=== PATIENT | male | born 1975 | race Caucasian/White ===

== ENCOUNTER 2020-07-15 14:43 | Emergency (ER) | payer SELFPAY ==
[2020-07-15 14:50] VITALS: BP 123/85; PULSE 96; RESP 16; TEMP 36.8; O2SAT 100
--- NOTE | 2020-07-15 14:57 | ED.EYEPROB ---
HPI - Eye Problem General Chief complaint: Eye Problems Stated complaint: left eye redness Time Seen by Provider: 07/15/20 14:57 History of Present Illness HPI Narrative: 45 yo male presents from home for eye pain. He has had pain in the left eye since yesterday. Started after a alfredo of wind blew up some concretes dust. Initially it was mild. When he awoke this morning his eye was more painful, red, and puffy. He does have mildly blurry vision. Related Data Allergies Allergy/AdvReac Type Severity Reaction Status Date / Time No Known Allergies Allergy Verified 07/15/20 14:59 Review of Systems Review of Systems: All systems reviewed & are unremarkable except as noted in HPI and below Eyes: Eyes: Reports change in vision and Reports photophobia ENT: Denies dizziness Cardiovascular: Cardiovascular: Denies chest pain Respiratory: Respiratory: Denies dyspnea Gastrointestinal: Gastrointestinal: Denies nausea and Denies vomiting Neurologic: Denies confusion, Denies headache(s), Denies numbness and Denies weakness [facility] Past Medical History Medical History (Updated 07/16/20 @ 00:01 by Hussain Little) Healthy adult male Social History Social History (Updated 07/15/20 @ 15:12 by Chago Davidson MD) Living arrangements: with family Gender identity (if verbalized by the patient): Male Sexual Orientation (if Verbalized by the Patient): Straight or Heterosexual Exam Const: General: healthy appearing, no acute distress and alert HENMT: Head: normal to inspection Eyes: Alignment and Position: alignment normal Periorbital: periorbital findings normal Eyelids: eyelids normal Conjunctivae: conjunctival abnormality left conjunctival injection diffuse Cornea: fluorescein used (Small area of uptake over the left cornea) Pupils: Equal, round and reactive pupils present EOM: EOMs intact bilaterally Resp: Effort & Inspection: normal respiratory effort Skin: General skin exam: normal color Neuro: General: patient oriented x3, moves all extremities, no focal motor deficits and CN's II-XI intact bilaterally Speech: normal speech Gait exam (Neuro): Normal gait present Extrem: General: normal to inspection Course Vital Signs Vital signs: Vital Signs Temperature 36.8 C 07/15/20 14:50 Pulse Rate 96 07/15/20 14:50 Respiratory Rate 16 07/15/20 14:50 Blood Pressure 123/85 01/07/21 14:50 Pulse Oximetry 100 07/15/20 14:50 Temperature 36.8 C 07/15/20 14:50 Pulse Rate 96 07/15/20 14:50 Respiratory Rate 16 07/15/20 14:50 Blood Pressure 123/85 07/15/20 14:50 Pulse Oximetry 100 07/15/20 14:50 MDM - Eye Problem MDM Narrative Medical decision making narrative: corneal abrasion on exam. No contact use. I will start him on erythromycin ointment. Medical Records Attestation: I reviewed the patient's medical records. Lab Data Attestation: I reviewed the patient's lab results. Discharge Plan Discharge Clinical Impression: Corneal abrasion Patient Disposition: Home, Self-Care Condition: Stable Instructions: Antibiotic Form, Corneal Abrasion (ED) Prescriptions: New erythromycin 5 mg/gram (0.5 %) ointment 0.5 inch LEFTEYE QID 5 Days Qty: 3.5 RF: 0 Follow-up/Referrals: Rod Blair Jr., MD [Physician] - PHYSICIAN NOT ON STAFF,NONSTAFF [Non-Staff] -
== END 2020-07-15 15:40 | disposition home or self-care (01) ==
LOC: ANHED 15:25
PROVIDERS: Emergency Provider Emergency Medicine
DX: S05.02XA Injury of conjunctiva and corneal abrasion without foreign body, left eye, initial encounter (principal); X58.XXXA Exposure to other specified factors, initial encounter
CPT/HCPCS: 99283; A9270

== ENCOUNTER 2021-08-07 22:08 | Emergency (ER) | payer SELFPAY ==
--- NOTE | ~2021-08-07 | XR_ITS ---
EXAMINATION: XR knee LT 3V DATE: 08/07/2021 23:01 INDICATION: Fall. TECHNIQUE: 3 views of left knee were obtained. COMPARISON: None. FINDINGS: Bone alignment is normal. No fracture. Joint spaces are well maintained. There is no knee j oint effusion. IMPRESSION: 1. Normal left knee. Reviewed, dictated and finalized at location A. FORMER MACHINE OPERATOR IMPRESSION: 1. Normal left knee.
[2021-08-07 22:14] VITALS: BP 105/61; PULSE 65; RESP 20; TEMP 36.5; O2SAT 100
--- NOTE | 2021-08-07 22:46 | ED.LOWEXIN ---
HPI - Extremity Injury (Lower) General Chief Complaint: Extremity Injury, Lower Stated Complaint: left knee injury Time Seen by Provider: 08/07/21 22:39 Source: patient and family Mode of arrival: ambulatory Limitations: no limitations History of Present Illness HPI Narrative: Patient was bending over, lost his balance and needed landed on the left knee. No other injuries. 2 hours prior to arrival to the emergency room. Patient received naproxen prior to arrival. Related Data Home Medications Medication Instructions Recorded Confirmed No Home Medications 08/07/21 08/07/21 Allergies Allergy/AdvReac Type Severity Reaction Status Date / Time No Known Allergies Allergy Verified 08/07/21 22:17 Review of Systems Review of Systems: CONSTITUTIONAL: Denies fever, chills, or sweats. EYES: Denies visual changes, redness, or discharge. ENT: Denies rhinorrhea, congestion, sore throat, or otalgia. CARDIOVASCULAR: Denies chest pain, palpitations, or edema. RESPIRATORY: Denies cough or dyspnea. GASTROINTESTINAL: Denies abdominal pain, nausea, vomiting, or diarrhea. GENITOURINARY: Denies dysuria or hematuria. SKIN: Denies rash or itching. MUSCULOSKELETAL: Diffuse pain and limited range of motion of left knee NEUROLOGIC: Denies headache, numbness, or weakness. PSYCHIATRIC: Denies anxiety or depression. PMFSH Past Medical History Medical History Healthy adult male Social History Social History Gender identity (if verbalized by the patient): Male Sexual Orientation (if Verbalized by the Patient): Straight or Heterosexual Exam Narrative: General appearance: Well-developed, well-nourished Skin: Normal color Head: Normocephalic, nontraumatic Neck: Supple, nontender Chest and respiratory: Airway patent, no respiratory distress, no accessory muscle use Vascular: Normal peripheral pulses, normal capillary refill. Musculoskeletal: Left knee exam showed diffuse swelling anteriorly, diffuse tenderness, limited range of motion. No deformity Neurologic: Alert and oriented ?3, [employer] is normal as tested, no gross motor deficit Course Course Emergency Course: Stable Vital Signs Vital signs: Vital Signs Temperature 36.5 C 08/07/21 22:14 Pulse Rate 65 08/07/21 22:14 Respiratory Rate 20 08/07/21 22:14 Blood Pressure 105/61 08/07/21 22:14 Pulse Oximetry 100 08/07/21 22:14 Temperature 36.5 C 08/07/21 22:14 Pulse Rate 65 08/07/21 22:14 Respiratory Rate 08/07/21 22:14 Blood Pressure 105/61 08/07/21 22:14 Pulse Oximetry 100 08/07/21 22:14 MDM - Extremity Injury (Lower) MDM Narrative Medical decision making narrative: Left knee injury Differential Diagnosis Differential diagnosis: Likely acute internal derangement of knee, fracture of femur and other (Patella fracture) Critical Care Time Critical Care Time Critical Care Time: No Discharge Plan Discharge Prescriptions: No Action No Home Medications RF: 0 Follow-up/Referrals: PHYSICIAN,AD COPY WRITER [Primary Care Provider] -
[2021-08-07 22:52] VITALS: BP 123/74; PULSE 65; RESP 18; O2SAT 99
[2021-08-07] MEDS: HYDROcodone/acetaminophen (*CRX) 7.5-325 MG TABLET 1 TAB PO (23:00)
[2021-08-08 01:08] VITALS: BP 144/83; PULSE 86; RESP 14; O2SAT 98
== END 2021-08-08 01:34 | disposition home or self-care (01) ==
PROVIDERS: Emergency Provider Emergency Medicine
DX: S80.02XA Contusion of left knee, initial encounter (principal); W18.39XA Other fall on same level, initial encounter
CPT/HCPCS: 73562; 99283; A9270

== ENCOUNTER 2023-06-27 08:13 | Emergency (ER) | payer SELFPAY ==
[2023-06-27 08:16] VITALS: BP 131/85; PULSE 92; RESP 16; TEMP 36.8; O2SAT 100
--- NOTE | 2023-06-27 08:19 | ED.SKABFB ---
HPI - Skin/Abscess/Foreign Bdy General Chief complaint: Skin/Abscess/Foreign Body Stated complaint: rash Time Seen by Provider: 06/27/23 08:18 Source: patient and family Mode of arrival: ambulatory Limitations: no limitations History of Present Illness HPI narrative: 48 yo with no known medical issues (though does not see physicians/have regular care) presents with a rash. He started haing pain a few days ago. He then developed the rash which did have a few blisters that drained. Rash is on his neck and back and is described as painful, burning. Related Data Allergies Allergy/AdvReac Type Severity Reaction Status Date / Time No Known Allergies Allergy Verified 06/27/23 08:18 [facility] Past Medical History Medical History Healthy adult male Social History Social History Living arrangements: with family Gender identity (if verbalized by the patient): Male Sexual Orientation (if Verbalized by the Patient): Straight or Heterosexual Exam Narrative: GENERAL: thin/gaunt, and in no acute distress. HEAD: Normocephalic, atraumatic. EYES: Non injected, non icteric ENT: Nares clear, no rhinorrhea or epistaxis. Bear NECK: Supple. Rash along R neck. CHEST: Speaksi in full sentences. No respiratory distress. HEART: Regular rate and rhythm. . ABDOMEN: Soft, nondistended. EXTREMITIES: Normal range of motion. No edema. SKIN: Warm, dry. Rash along R neck/superior chest/back. NEURO: No focal deficits. Alert and oriented x3. PSYCH: Normal mood and affect. Course Vital Signs Vital signs: Vital Signs Temperature 98.2 F 06/27/23 08:16 Pulse Rate 92 06/27/23 08:16 Respiratory Rate 16 06/27/23 08:16 Blood Pressure 131/85 06/27/23 08:16 Pulse Oximetry 100 06/27/23 08:16 Temperature 98.2 F 06/27/23 08:16 Pulse Rate 92 06/27/23 08:16 Respiratory Rate 16 06/27/23 08:16 Blood Pressure 131/85 06/27/23 08:16 Pulse Oximetry 100 06/27/23 08:16 MDM - Skin/Abscess/Foreign Bdy MDM Narrative Medical decision making narrative: Patient presents with a burning, painful rash. Lesions are on the right particularly dermatomal distributions C4, C5, and T1. This is classic herpes zoster/shingles based on unilateral nature that follows dermatomal distribution. Patient has unclear underlying history; no known medical conditions but does not regularly get care. For this reason, and because 3 dermatomes involved which would put him at greater risk if immunocompromised or other risk factors, will obtain labs. Patient does verbally consent to HIV testing. Patient does appear to have hyponatremia however this is partial pseudo hyponatremia given that the sodium of 132 corrects to either 136 or 137 by Lizzy Rubalcava in the setting of glucose 325 mg/dL. Discharged in stable condition but with strict ED return precautions. Verifies understanding. Lab Data Attestation: I reviewed the patient's lab results. Lab results narrative: CBC unremarkable. Normal renal function. Hepatitis and HIV testing negative. 06/27/23 08:55 06/27/23 08:55 Labs: Lab Results 06/27/23 Range/Units 08:55 WBC 5.5 (4.5-10.0) K/mm3 RBC 5.04 (4.6-6.20) M/mm3 Hgb 14.7 (14.0-18.0) g/dL Hct 44.1 (42.0-52.0) % MCV 87.5 (80-100) fl MCH 29.2 (26-34) pg MCHC 33.3 (32-36) g/dl RDW 12.2 (11.5-14.5) % Plt Count 244 (150-375) k/mm3 MPV 9.5 (7.4-10.4) fl Immature Gran % (Auto) 0.5 (0-0.5) % Neut % (Auto) 69.4 (45.5-73.1) % Lymph % (Auto) 13.9 L (18.3-44.2) % [place] % (Auto) 12.6 H (2.6-8.5) % Eos % (Auto) 2.9 (0-4.4) % Baso % (Auto) 0.7 (0.2-1.2) % Lymph # (Auto) 0.77 L (0.9-3.2) K/mm3 [place] # (Auto) 0.7 H (0.1-0.6) K/mm3 Eos # (Auto) 0.2 (0-0.3) K/mm3 Baso # (Auto) 0.0 (0.0-0.1) K/mm3 Abs Immat Gran (auto) 0.03 (0.00-0.031) K/mm3 Abso
[2023-06-27 09:04] LABS: Basophils Percent Auto 0.7 % (0.2-1.2); Eosinophils Absolute Auto 0.2 K/mm3 (0-0.3); Eosinophils Percent Auto 2.9 % (0-4.4); Hematocrit 44.1 % (42.0-52.0); Hemoglobin 14.7 g/dL (14.0-18.0); Immature Granulocyte Absolute 0.03 K/mm3 (0.00-0.031); Immature Granulocyte Percent A 0.5 % (0-0.5); Lymphocytes Absolute Auto 0.77 K/mm3 (0.9-3.2); Lymphocytes Percent Auto 13.9 % (18.3-44.2); Mean Corpuscular HGB Conc 33.3 g/dl (32-36); Mean Corpuscular Hemoglobin 29.2 pg (26-34); Mean Corpuscular Volume 87.5 fl (80-100); Mean Platelet Volume 9.5 fl (7.4-10.4); Monocytes Absolute Auto 0.7 K/mm3 (0.1-0.6); Monocytes Percent Auto 12.6 % (2.6-8.5); Neutrophils Absolute Auto 3.8 K/mm3 (1.3-6.7); Neutrophils Percent Auto 69.4 % (45.5-73.1); Platelet Count Result 244 k/mm3 (150-375); Red Blood Count 5.04 M/mm3 (4.6-6.20); Red Cell Distribution Width 12.2 % (11.5-14.5); White Blood Count 5.5 K/mm3 (4.5-10.0)
[2023-06-27] MEDS: HYDROcodone/acetaminophen (*CRX) 5-325 MG TABLET 1 TAB PO (09:04)
[2023-06-27 09:14] LABS: Alanine Aminotransferase 26 U/L (6-50); Alkaline Phosphatase 126 U/L (38-126); Anion Gap 7 mmol/L (8-16); Aspartate Amino Transferase 25 U/L (17-59); Bilirubin,Total 0.5 mg/dL (0.2-1.3); Blood Urea Nitrogen 15 mg/dL (9-20); Calcium 8.9 mg/dL (8.4-10.2); Carbon Dioxide 25 mmol/L (22-30); Chloride 100 mmol/L (98-107); Estimated CRCL calculation 153 ml/min; Estimated Glomerular Filt Rate > 60; Glucose 325 mg/dL (65-110); Potassium 4.4 mmol/L (3.4-5.0); Sodium 132 mmol/L (137-145)
[2023-06-27 09:55] LABS: HIV 1/2 Ab P24 Ag Result Negative (Negative)
[2023-06-27 10:26] LABS: Hepatitis B Surface Antigen Negative (Negative)
[2023-06-27 10:31] LABS: HAV RESULT Negative (Negative); Hepatitis B Core IgM Result Negative (Negative)
[2023-06-27 10:43] LABS: Hepatitis C Virus Antibody Negative (Negative)
[2023-06-27] MEDS: ACYCLOVIR 400 MG TABLET 800 MG PO (11:20)
[2023-06-27] MEDS: diphenhydrAMINE HCl CAP 25 MG CAPSULE PO (11:21)
== END 2023-06-27 11:23 | disposition home or self-care (01) ==
PROVIDERS: Emergency Provider Student in an Organized Health Care Education/Training Program
DX: B02.9 Zoster without complications (principal); R73.9 Hyperglycemia, unspecified
CPT/HCPCS: 36415; 80053; 80074; 85025; 86703; 99283; A9270; G0432

== ENCOUNTER 2024-02-25 21:14 | Emergency (ER) | payer MEDICAID, SELFPAY ==
[2024-02-25 21:24] VITALS: BP 152/84; PULSE 83; RESP 15; TEMP 36.6; O2SAT 98
[2024-02-25 21:27] LABS: Glucose Point of Care 277 mg/dl (65-105)
== END 2024-02-25 23:04 | disposition left against medical advice (07) ==
LOC: ANHED 23:02
PROVIDERS: Emergency Provider Emergency Medicine
DX: E11.9 Type 2 diabetes mellitus without complications (principal)
CPT/HCPCS: 82948; 99199

== ENCOUNTER 2025-02-10 19:44 | Emergency (ER) | payer OTHER, SELFPAY ==
--- OUTSIDE RECORDS SUMMARY | 2025-02-10 19:46 | XMS_ITS | Encounter Summary ---
Author Organization [employer] Address [address] [place] [address] Care Team Providers Care Anesthesiologist And Critical Care Name Role Phone Jolie Phelan MD Primary Care Provider [phone] Encounter Details Date Type Department Care Team (Late st Contact Info) Description 03/21/1999 Emergency [facility] [place] Open wound of hand except finger(s) alone, without mention of complication (Primary Dx) Social History Tobacco Use Types Packs/Day Years Used Date Smoking Tobacco: Never Assessed Sex and Gender Information Value Date Recorded Sex Assigned at Not on file Legal Sex Male 2:41 AM [employer] Gender Identity Not on file Sexual Orientation Not on file documented as of this encounter Plan of Treatment Not on file documented as of this encounter Visit Diagnoses Diagnosis Open wound of hand except finger(s) alone, without mention of complication- Primary documented in this encounter Care Teams Anesthesiologist And Critical Care Relationship Specialty Start Date End Date Jolie Phelan MD PCP - General Family Practice 12/05/11 09/27/12 documented as of this encounter
--- OUTSIDE RECORDS SUMMARY | 2025-02-10 19:46 | XMS_ITS | Referral Summary ---
Author Organization [facility] Address [address] [place] [phone] Care Team Providers Care Water Treatment Technician Name Role Phone Jai Medina NP Primary Care Provider [phone] Encounters Date Type Department Care Team Description 01/26/2025 3:02 PM CDT - 01/26/2025 11:59 PM CDT Hospital Encounter [address] [phone] Ulcer of left foot, with fat layer exposed (HCC) Discharge Disposition: Discharge to home or self care 01/26/2025 Results Follow-Up [facility] Podiatry at [address] [phone] Leighann Charles MD XR Foot Left Weight-Bearing 3 or More Views, Aerobic and anaerobic culture and gram stain Wound Foot, left 01/26/2025 3:19 PM CDT - 01/26/2025 11:59 PM CDT Hospital Encounter [facility] Diagnostic Imaging [address] [place] [phone] Ulcer of left foot, with fat layer exposed (HCC) Discharge Disposition: Discharge to home or self care 01/26/2025 2:30 PM CDT Office Visit [facility] Pod[facility]ry at [address] [phone] Leighann Charles MD Type 1 diabetes, controlled, with neuropathy (HCC) (Primary Dx); Corns and callosities; Blister of left foot, initial encounter; Ulcer of left foot, with fat layer exposed (HCC); Type 1 diabetes mellitus with hyperglycemia (HCC) 01/26/2025 1:00 PM CDT Office Visit [facility] [address], [place] [address] Ramona Romero MD Type 1 diabetes mellitus with hyperglycemia (HCC) (Primary Dx) 01/23/2025 Results Follow-Up [facility] [address] [phone] Flora Roland PA TSH, T4, free, T3, free, Additional followed-up results: 4 01/23/2025 9:35 AM CDT Lab [address] [address] Toxic thyroid nodule; Type 1 diabetes mellitus with hyperglycemia (HCC) 01/19/2025 Telephone [facility] Gastroenterology at [address] [phone] Huy Valiente MD 12/29/2024 Telephone [facility] at [address] [phone] Jai Medina NP Medication Problem 12/29/2024 7:30 AM CDT Office Visit [facility] at [address] [phone] Jai Medina NP Type 1 diabetes mellitus with hyperglycemia (HCC) (Primary Dx); Hyperlipidemia due to type 1 diabetes mellitus (HCC); Abnormal thyroid blood test; Need for vaccination; Need for pneumococcal 20-valent conjugate vaccination 12/10/2024 Orders Only [facility] Diabetes and Endocrinology [address] [place] [phone] Jack Serrano MD 12/02/2024 9:15 AM CDT Office Visit [facility] [address] [phone] Flora Roland PA Type 1 diabetes mellitus with hyperglycemia (HCC) (Primary Dx); Toxic thyroid nodule; Hyperlipidemia due to type 1 diabetes mellitus (HCC) from Last 3 Months Allergies No known active allergies Medications glucagon (Gvoke HypoPen 1-Pack) 1 mg/0.2 mL auto-injector Inject 1 mg under the skin as needed (Hypoglycemia ) 0.2 mL 3 4 Active insulin lispro (HumaLOG, ADMELOG) 100 unit/mL pen for injectionIndica tions:type 2 diabetes mellitus Take 1 unit per 20 grams of carbs and add 1 unit per every 50 points over 150, up to 10 units daily 15 mL 6 4 Active blood-glucose sensor device Change q 10 days (dexcom G7) 9 each 3 4 Active blood-glucose meter,continuou s misc Use to monitor CBGs 1 each 4 Active atorvastatin (LIPITOR) 10 mg tabletIndicatio ns:Screening for prostate cancer,Prostate cancer screening,Encou nter for hepatitis C screening test for low risk patient,Need for hepatitis B screening test Take 1 tablet (10 mg total) by mouth daily 90 tablet 4 4 06/27/20 25 Active insulin glargine (LANTUS) 100 unit/mL (3 mL) pen for injection Inject 15 Units under the skin nightly 15 mL 2 4 Active pen needle, diabetic (BD Ultra-Fine Shirley Pen Needle) 32 gauge x 5/32 needle Use to inject insulin 4x/day 360 each 3 5 Active methIMAzole (TAPAZOLE) 5 mg tablet TAKE 1/2 TABLET BY MOUTH DAILY 15 tablet 3 5 Active varenicline tartrate (CHANTIX TALIB) 0.5 mg (11)- 1 mg (42) tablet Use as directed on package instructions, try to quit smoking after 1 week. 53 tablet 5 03/29/20 25 Active lansoprazole (PREVACID) 30 mg capsule Take 1 capsule (30 mg total) by mouth daily 90 capsule 4 5 12/30/19 26 Active bisacodyl EC (DULCOLAX EC) 5 mg EC tabletIndicatio ns:constipation At 7 pm, take all four tablets at once with a glass of water. 4 tablet 5 Active polyethylene glycol (GoLYTELY) 236-22.74-6.74 -5.86 gram solution Take As Directed 8000 mL 5 Active losartan (COZAAR) 25 mg tablet Take 1 tablet (25 mg total) by mouth daily 90 tablet 3 5 01/27/20 26 Active ciprofloxacin (CIPRO) 500 mg tablet Take 1 tablet (500 mg total) by mouth 2 (two) times a day for 14 days 28 tablet 5 02/11/20 25 Active polyethylene glycol (GoLYTELY) 236-22.74-6.74 -5.86 gram solution Mix as directed. At 4:00 pm, begin drinking one half of the mixed solution; you will have until 7:00 pm to finish. At 10 pm drink the second half of the mixed solution, you have till midnight to finish. 4000 mL 5 01/23/20 25 Discontinu ed(Alterna te therapy) Active Problems Problem Noted Date Diagnosed Date Type 1 diabetes, controlled, with neuropathy Assessment & Plan (01/26/2025 4:44 PM CDT): Patient should continue to follow-up with their primary care doctor for treatment of diabetes. They should continue at risk foot care to prevent diabetic complications that could lead to toe or foot amputations. Ulcer of left foot, with fat layer exposed 01/26 Assessment & Plan (01/26/2025 4:45 PM CDT): Ulcer debrided. Patient to continue home treatment with Bactroban and dry sterile dressing. Patient advised to get orthotics and start wearing them to decrease callus buildup which could lead to additional ulcerations. Corns and callosities 01/26/2025 Assessment & Plan (01/26/2025 4:45 PM CDT): Calluses debrided Blister of left foot 01/26/2025 Assessment & Plan (01/26/2025 4:46 PM CDT): Patient advised to apply Neosporin on the blister and monitor for signs of infection. Since patient not in pain the blister will not need to be drained. Patient also advised to use Vaseline or other emollient cream on the calluses to decrease friction so that they will not build up as fast and make him at risk for additional diabetic ulcers. Screening for colon cancer 01/21/2025 Toxic thyroid nodule 11/06/2024 Assessment & Plan (12/02/2024 10:00 AM CDT): Chronic problem, on MMI 2.5 mg daily since 08/02, tolerating well. Feels his heart racing has resolved, fatigue has also improved. Update labs. Abnormal thyroid blood test 07/11/2024 Assessment & Plan (12/29/2024 9:59 AM CDT): Discussed need for re-evaluation of thyroid levels. Thyroid labs ordered by endocrinology pending. Patient stated he would get labs drawn today. Assessment & Plan (07/17/2024 12:38 PM SHOW HOST OR HOSTESS): New problem, on screening labs in 07/01. Repeat TFTs today as well as thyroid antibodies. Next step determined based on lab results, if persistently suppressed TSH will do I-123 scan. Hyperlipidemia due to type 1 diabetes mellitus 0 07/11/2024 Assessment & Plan (12/29/2024 9:54 AM CDT): Patient compliant with cholesterol medications. Lipids to be evaluated in June. Assessment & Plan (12/02/2024 9:57 AM CDT): Chronic problem. On statin therapy, no changes. Assessment & Plan (07/17/2024 12:38 PM SHOW HOST OR HOSTESS): Chronic problem. On statin therapy, no changes. Encounter for screening for malignant neoplasm o f colon 07/07/2024 Type 1 diabetes mellitus with hyperglycemia 12/2023 Assessment & Plan (12/29/2024 9:56 AM CDT): Discussed follow up with endocrinology. Patient discussed readings of less than 100 before his bedtime insulin so he normally does a snack before bed. Encouraged to discuss with chemical supervisor. Recent Hgb A1c 5.9 noted. Assessment & Plan (12/02/2024 9:59 AM CDT): Chronic problem, at goal. Continue Lantus and HL per same regimen. Discussed hypoglycemia including treatment, he has current glucagon pen at home. He asked about insulin pump therapy which we discussed briefly, prefers to stay with MDI at this time. Request eye exam. Update routine labs, will also repeat MA/Cr as it was elevated initially after diagnosis. If not improving will start low dose ACEI/ARB. Assessment & Plan (07/17/2024 12:39 PM SHOW HOST OR HOSTESS): Chronic problem, significantly improving. Reviewed his insulin dosing. Continue Lantus 15 units qHS and HL per CR 20 and SF 1:50 >150. Schedule eye exam. He had + MA/cr on screening labs in 07/01. Will repeat next visit and if needed start low dose ACEI or ARB. He needs to schedule with a foot doctor for his thick calluses. He lives in [place] and prefers to see one over there. Referral placed. Assessment & Plan (06/27/2024 12:46 PM SHOW HOST OR HOSTESS): A1C 6.4- continue diet changes and insulins Condition well controlled Continue care with endocrinology Assessment & Plan (03/14/2024 4:11 PM CDT): Newly diagnosed, improving Hemoglobin A1c target of around 6.5 glucoses in the 110 to 150 range was explained Advised the patient to try to limit rapid absorption carbohydrate intake like sweet drinks, pastry and desserts. Lantus insulin, 15 units at bedtime Humalog, 1 unit per every 20 g of carbs with a correction factor of 50 over 150 Prevention and treatment of hypoglycemia was discussed Prescription for Gvoke Hypopen was also sent Will check BRINDA antibodies Pain 01/20/2024 Epidermal inclusion cyst 03/19/2018 Lump of right breast 03/07/2018 Mastodynia of right breast 03/07/2018 Nonpuerperal mastitis of right breast 03/07/2018 HTN (hypertension) 12/05/2011 Immunizations Immunization Administration Dates Next Due Influenza, Unspecified 06/27/2024(Deferr ed: Patient Refused),02/06/2023(Deferred: Patient Refused) Pneumococcal Conjugate Pcv20 12/29/2024 Tdap 04/28/2010 Social History Tobacco Use Types Packs/Day Years Used Date Smoking Tobacco: Every Day Cigarettes Tobacco Cessation:Ready to Q uit: Not Asked; Counseling Given: Not Answered [facility] Utilities Answer Date Recorded In the past 12 months has th e electric, gas, oil, or water company threatened to shut off services in your home? No 01/22/2024 Social Connection and Isolat ion Panel [NHANES] Answer Date Recorded In a typical week, how many times do you talk on the phone with family, friends, or neighbors? More than three times a week 01/22/2024 How often do you get togethe r with friends or relatives? More than three times a week 01/22/2024 How often do you attend chur ch or jew services? Never 01/22/2024 Do you belong to any clubs o r organizations such as methodist groups, unions, fraternal or athletic groups, or school groups? No 01/22/2024 How often do you attend meet ings of the clubs or organizations you belong to? Never 01/22/2024 Are you , , di vorced, , never , or living with a partner? Living with partner 01/22/2024 AUDIT-C Answer Date Recorded Q1: How often do you have a drink containing alcohol? Never 09/24/2024 Q2: How many drinks containi ng alcohol do you have on a typical day when you are drinking? Patient does not drink Q3: How often do you have si x or more drinks on one occasion? Never 09/24/2024 Overall Financial Resource Strain (CARDIA) Answe r Date Recorded How hard is it for you to pa y for the very basics like food, housing, medical care, and heating? Somewhat hard 01/22/2024 PHQ-2 Answer Date Recorded PHQ-2 Total Score (If total score is 3 or more points, staff should administer the PHQ-9) 0 12/29/2024 Hunger Vital Sign Answer Date Recorded Within the past 12 months, y ou worried that your food would run out before you got the money to buy more. Never true 01/22/20 24 Within the past 12 months, t he food you bought just didn't last and you didn't have money to get more. Never true 01/22/2024 PRAPARE - Transportation Answer Date Re corded In the past 12 months, has l ack of transportation kept you from medical appointments or from getting medications? No 01/06 In the past 12 months, has l ack of transportation kept you from meetings, work, or from getting things needed for daily living? No 01/22/2024 Housing Stability Vital Sign Answer Al e Recorded In the last 12 months, was t here a time when you were not able to pay the mortgage or rent on time? No 01/22/2024 In the past 12 months, how m any times have you moved where you were living? 0 01/22/2024 At any time in the past 12 m [facility], were you homeless or living in a jail (including now)? No 01/22/2024 Personal Safety Answer Date Recorded Have you ever been in or are you currently in a harmful physical or emotional relationship or is someone making you feel afraid or unsafe? Denies 09/24/2024 Sex and Gender Information Value Date Recorded Sex Assigned at Not on file Legal Sex Male 10:44 AM CDT Gender Identity Not on file Sexual Orientation Straight 03/14/2024 11 :54 AM CDT Last Filed Vital Signs Vital Sign Reading Time Taken Comments Blood Pressure 112/66 01/26/2025 2:10 PM CDT Pulse 78 01/26/2025 2:10 PM CDT Temperature 36.6 C (97.9 F) 09/24/2024 8:46 AM CDT Respiratory Rate 18 01/26/2025 2:10 PM CDT Oxygen Saturation 98% 01/26/2025 2:10 PM CDT Inhaled Oxygen Concentration - - Weight 88 kg (194 lb) 01/26/2025 2:10 PM CDT Height 185.4 cm (6' 1) 01/26/2025 2:10 PM CDT Body Mass Index 25.6 01/26/2025 2:10 PM CDT Plan of Treatment Upcoming Encounters Date Type Department Care Team (Late st Contact Info) Description 02/16/2025 12:45 PM CDT Hospital Encounter [facility] [address] [place] [address] [place] [address] [facility] [address] [place] [address] 02/16/2025 12:45 PM CDT - 02/16/2025 1:15 PM CDT Surgery [facility] [address] [place] [address] [place] [address] [facility] [address] [place] [address] COLONOSCOPY Scheduled Procedures Name Priority Associated Diagnoses Date/Ti me COLONOSCOPY Screening for colon cancer 02/16/2025 12:45 PM CDT Procedures Procedure Name Priority Date/Time Associated Diagnosis Comments XR FOOT LEFT WEIGHT-BEARING 3 OR MORE VIEWS Schedule Routine, Read Routine (OP Routine) 01/26/2025 3:43 PM CDT Ulcer of left foot, with fat layer exposed (HCC) AEROBIC AND ANAEROBIC CULTURE AND GRAM STAIN Routine 01/26/2025 3:02 PM CDT Ulcer of left foot, with fat layer exposed (HCC) POCT HEMOGLOBIN A1C Routine 01/26/2025 1 :03 PM CDT Type 1 diabetes mellitus with hyperglycemia (HCC) POCT GLUCOSE Routine 01/26/2025 1:02 PM CDT Type 1 diabetes mellitus with hyperglycemia (HCC) EGFR Routine 01/23/2025 10:19 AM CDT Type 1 diabetes mellitus with hyperglycemia (HCC) COMPREHENSIVE METABOLIC PANEL Routine 01/23/2025 10:19 AM CDT Type 1 diabetes mellitus with hyperglycemia (HCC) LIPID PANEL Routine 01/23/2025 10:19 AM CDT Type 1 diabetes mellitus with hyperglycemia (HCC) T3, FREE Routine 01/23/2025 10:19 AM CDT Toxic thyroid nodule T4, FREE Routine 01/23/2025 10:19 AM CDT Toxic thyroid nodule TSH Routine 01/23/2025 10:19 AM CDT Toxic thyroid nodule ALBUMIN CREATININE RATIO, URINE Routine 01/23/2025 10:01 AM CDT Type 1 diabetes mellitus with hyperglycemia (HCC) POCT GLUCOSE Routine 12/02/2024 9:10 AM CDT Type 1 diabetes mellitus with hyperglycemia (HCC) POCT HEMOGLOBIN A1C Routine 12/02/2024 9 :10 AM CDT Type 1 diabetes mellitus with hyperglycemia (HCC) COLONOSCOPY 09/24/2024 9:32 AM CDT HM DIABETES EYE EXAM Routine 08/12/2024 7:54 AM SHOW HOST OR HOSTESS HEPATITIS C ANTIBODY Routine 06/27/2024 8:17 AM SHOW HOST OR HOSTESS Screening for prostate cancer Prostate cancer screening Encounter for hepatitis C screening test for low risk patient Need for hepatitis B screening test PSA SCREEN Routine 06/27/2024 8:17 AM SHOW HOST OR HOSTESS Screening for prostate cancer Prostate cancer screening Encounter for hepatitis C screening test for low risk patient Need for hepatitis B screening test from Last 3 Months or Most Recently Relevant to Health Maintenance Results * XR Foot Left Weight-Bearing 3 or More Views (01/26/2025 3:43 PM CDT) Anatomical Region Laterality Modality Lower Extremities, Foot Left Computed Radiography 01/26/2025 3:57 PM CDT Impressions 01/26/2025 3:57 PM CDT Mild osteoarthritis. No abnormal bone destruction. Electronically signed by: Leonard Schultz M.D. Narrative 01/26/2025 3:57 PM CDT EXAMINATION: XR FOOT LEFT WEIGHT-BEARING 3 OR MORE VIEWS DATE: 01/26/2025 3:30 PM HISTORY: ulcer left foot submet 1 FINDINGS: There is no fracture, dislocation or abnormal bone destruction. There is no soft tissue gas. Mild degenerative change is noted in the midfoot. Procedure Note Leonard Schultz MD - 01/26/2025 EXAMINATION: XR FOOT LEFT WEIGHT-BEARING 3 OR MORE VIEWS DATE: 01/26/2025 3:30 PM HISTORY: ulcer left foot submet 1 FINDINGS: There is no fracture, dislocation or abnormal bone destruction. There is no soft tissue gas. Mild degenerative change is noted in the midfoot. IMPRESSION: Mild osteoarthritis. No abnormal bone destruction. Electronically signed by: Leonard Schultz M.D. Leighann Charles MD IMG XR PROCEDURES Final Result * (ABNORMAL) Aerobic and anaerobic culture and gram stain Wound Foot, left (01/26/2025 3:02 PM CDT) Direct Specimen Exam Stain: No polymorphonuclear leukocytes seen. Few Gram Positive Cocci Rare Gram Negative Bacilli Comment:Testing performed by : [facility], [address] [place]., [address] Report Final Report: Moderate Pasteurella species Resistance to quinolones, tetracyclines, trimethoprim sulfamethoxazole, and azithromycin has not been noted in Pasturella species and therefore, routine susceptibility testing is not performed. Some strains of Pasturella produce a beta-lactamase. Few Mixed microorganisms. (.) ANAYELI Comment:Testing performed by : [facility], [address] [place] [address]., [id number] Organism PASTEURELLA SPECIES [facility] Organism MIXED MICROORGANISMS. [facility] (Foot, left) 01/26/2025 3:02 PM CDT 01/26/2025 10:02 PM CDT Narrative ANAYELI - 02/02/2025 1:55 PM CDT Testing performed by [facility] Microbiology Laboratory ([phone]) Specimens submitted from normally sterile body sites will have all bacterial morphotypes identified. Specimens that contain grossly mixed fernando and/or are from body sites that are not normally sterile will be examined for Staphylococcus aureus, Pseudomonas aeruginosa, beta-hemolytic strep, vancomycin-resistant Enterococcus, Bacteroides, Parabacteroides, Clostridium perfringens and fungus. If any of these are isolated, the organism will be reported. Current interpretive data was last revised on 2019. Leighann Charles MD [facility] Final Result ANAYELI HERNANDEZ [address] [place] [address] * (ABNORMAL) POCT hemoglobin A1c (01/26/2025 1:03 PM CDT) Hemoglobin A1C, POC 5.7(A) 4.0 - 5.6 % Capillary blood 01/26/2025 1 :03 PM CDT us Ramona Romero MD POINT OF CARE TEST ORDERABLES Fi nal Result * POCT glucose (01/26/2025 1:02 PM CDT) Glucose Blood, POC 177 Normal Fasting 70 - 100, Random <200 mg/dL Blood 01/26/2025 1:02 PM CDT us Ramona Romero MD POINT OF CARE TEST ORDERABLES Fi nal Result * eGFR (01/23/2025 10:19 AM CDT) eGFR >90 >=60 mL/min/1. 73 m2 Comment: Interpretive Data Reference Interval Normal >/= 90 mL/min/1.73m2 Mildly decreased* 60 - 89 mL/min/1.73m2 Mildly to moderately decreased 45 - 59 mL/min/1.73m2 Moderately to severely decreased 30 - 44 mL/min/1.73m2 Severely decreased 15 - 29 mL/min/1.73m2 Kidney Failure < 15 mL/min/1.73m2 *Relative to young adult level Estimated glomerular filtration rate is determined by the 2020 CKD-EPI equation recommended by the National Kidney Foundation (A Unifying Approach to GFR Estimation: Recommendations of the NKF-ASK Task Force on Reassessing the Inclusion of Race in Diagnosing Kidney Disease, JASN 202). The CKD-EPI equation should not be used for patients with unstable renal function and has not been validated in children and those over 70. Current interpretive data was last reviewed 2021. Blood 01/23/2025 10:1 9 AM CDT 01/23/2025 10:19 AM CDT Flora HARO LAB BLOOD ORDERABLES Fi nal Result Performing Organization Address City/[facility] Co de Phone Number JASPREETPATEL HERNANDEZ [phone] [place] [address] * T3, free (01/23/2025 10:19 AM CDT) Free T3 3.2 2.0 - 4.4 pg/mL Blood 01/23/2025 10:1 9 AM CDT 01/23/2025 10:19 AM CDT Flora HARO LAB BLOOD ORDERABLES Fi nal Result Performing Organization Address [facility] de Phone Number ANAYELI DAVID [phone] [place] [address] * TSH (01/23/2025 10:19 AM CDT) Thyroid Stimulating Hormone 0.38 0.30 - 4.20 mcIUnit/mL Blood 01/23/2025 10:1 9 AM CDT 01/23/2025 10:19 AM CDT Flora HARO LAB BLOOD ORDERABLES Fi nal Result Performing Organization Address [facility] Co de Phone Number ANAYELI DAVID [address] [place] [address] * T4, free (01/23/2025 10:19 AM CDT) Free T4 1.30 0.90 - 1.70 ng/dL Blood 01/23/2025 10:1 9 AM CDT 01/23/2025 10:19 AM CDT Flora HARO LAB BLOOD ORDERABLES Fi nal Result Performing Organization Address City/[facility] Co de Phone Number ANAYELI DAVID [phone] Department [place] [address] * Lipid panel (01/23/2025 10:19 AM CDT) Cholesterol 113 30 - 199 mg/dL Comment: Interpretive Data Ages < or = 19 years Acceptable: <170 mg/dL Borderline high: 170-199 mg/dL High: >or= 200 mg/dL Ages > or = 20 years Desirable: <200 mg/dL Borderline high: 200-239 mg/dL High: >or= 240 mg/dL Literature References: 1. Expert Panel on Integrated Guidelines for Cardiovascular Health and Risk Reduction in Children and Adolescents. Pediatrics 2011;128:S213 2. NCEP Expert Panel. Circulation 2004;110:227 Current Interpretive Data was last revised on 2018. Triglycerides 39 <=149 mg/dL ANAYELI HERNANDEZ Comment: Interpretive Data Ages < or = 9 years Acceptable: <75 mg/dL Borderline high: 75-99 mg/dL High: >or= 100 mg/dL Ages 10 to 20 years Acceptable: <90 mg/dL Borderline high: 90-129 mg/dL High: >or= 130 mg/dL Ages > or = 20 years Desirable: <150 mg/dL Borderline high: 150-199 mg/dL High: 200-499 mg/dL Very high: >or= 499 mg/dL Literature References: 1. Expert Panel on Integrated Guidelines for Cardiovascular Health and Risk Reduction in Children and Adolescents. Pediatrics 2011;128:S213 2. NCEP Expert Panel. Circulation 2004;110:227 Current Interpretive Data was last revised on 2018. HDL 50 >=40 mg/dL ANAYELI HERNANDEZ Comment: Interpretive Data Ages < or = 19 years Acceptable: >45 mg/dL Borderline low: 40-45 mg/dL Low: <40 mg/dL Ages > or = 20 years Desirable: >or= 60 mg/dL Low: <40 mg/dL Literature References: 1. Expert Panel on Integrated Guidelines for Cardiovascular Health and Risk Reduction in Children and Adolescents. Pediatrics 2011;128:S213 2. NCEP Expert Panel. Circulation 2004;110:227 Current Interpretive Data was last revised on 2018. LDL, calculated 53 <=129 mg/dL ANAYELI HERNANDEZ Comment: Interpretive Data Ages < or = 19 years Acceptable: <110 mg/dL Borderline high: 110-129 mg/dL High: >or= 130 mg/dL Ages > or = 20 years Optimal: <100 mg/dL Near optimal: 100-129 mg/dL Borderline high: 130-159 mg/dL High: >160 mg/dL Calculated using the David LDL-C estimating equation. This equation was implemented on 2024. Prior to this date LDL-C was estimated using the Friedewald equation. Literature References: 1. Expert Panel on Integrated Guidelines for Cardiovascular Health and Risk Reduction in Children and Adolescents. Pediatrics 2011;128:S213 2. NCEP Expert Panel. Circulation 2004;110:227 3. David Banks et al. JOE Cardiol. 2019November 06;5(5):540-548. doi: 10.1001/jamacardio.2020.0013 Current Interpretive Data was last revised on 2024. Non-HDL Cholesterol 63 mg/dL ANAYELI HERNANDEZ Comment: Interpretive Data Ages < or = 19 years Acceptable: <120 mg/dL Borderline high: 120-144 mg/dL High: >145 mg/dL Ages > or = 20 years When triglycerides are >200 mg/dL, Non-HDL cholesterol is a secondary target of therapy with treatment goals that are 30 mg/dL greater than the LDL cholesterol target. Literature References: 1. Expert Panel on Integrated Guidelines for Cardiovascular Health and Risk Reduction in Children and Adolescents. Pediatrics 2011;128:S213 2. NCEP Expert Panel. Circulation 2004;110:227 Current Interpretive Data was last revised on 2018. Chol/HDL ratio 2 ANAYELI Blood 01/23/2025 10:1 9 AM CDT 01/23/2025 10:19 AM CDT Narrative ANAYELI HERNANDEZ - 01/23/2025 10:53 AM CDT These lab test should be done fasting. This means do not eat or drink for at least 12 hours prior to getting your blood drawn. Flora HARO LAB BLOOD ORDERABLES Fi nal Result ANAYELI HERNANDEZ [id number] Department [place] [address] * (ABNORMAL) Comprehensive metabolic panel (01/23/2025 10:19 AM CDT) Sodium 139 135 - 145 mmol/L Potassium, pl 4.7 3.3 - 4.9 mmol/L [facility] Chloride 105 97 - 110 mmol/L [facility] CO2 24 22 - 32 mmol/L [facility] Anion gap 10 2 - 15 mmol/L [facility] BUN 19 6 - 25 mg/dL [facility] Creatinine 0.78(L) 0.80 - 1.30 mg/dL [facility] Glucose 107 70 - 199 mg/dL [facility] Comment: Interpretive Data Fasting glucose >/= 126 mg/dl is diagnostic for diabetes. Fasting is defined as no caloric intake for at least 8 hours. Fasting glucose between 100 mg/dl to 125 mg/dl is diagnostic of prediabetes. In a patient with classic symptoms of hyperglycemia or hyperglycemic crisis, a random glucose >/= 200 mg/dl is diagnostic for diabetes. In the absence of unequivocal hyperglycemia, results should be confirmed by repeat testing. The classification and Diagnosis of Diabetes Diabetes Care 2021; 46: S19-S40. Current interpretive data was last revised 2022. Calcium 9.0 8.5 - 10.3 mg/dL [facility] Bilirubin, total 0.4 0.1 - 1.2 mg/dL [facility] Protein, pl 6.9 6.5 - 8.5 g/dL [facility] Albumin 3.8 3.5 - 5.0 g/dL [facility] Alk phos 110 40 - 130 Units/L [facility] ALT 36 7 - 55 Units/L [facility] AST 28 10 - 50 Units/L [facility] Blood 01/23/2025 10:1 9 AM CDT 01/23/2025 10:19 AM CDT us Flora HARO LAB BLOOD ORDERABLES Fi nal Result ANAYELI HERNANDEZ [id number] [place] [address] * (ABNORMAL) Albumin Creatinine Ratio, Urine (01/23/2025 10:01 AM CDT) Albumin Ur 225.5 mg/L Comment: Interpretive Data No reference range established. Current interpretive data was last revised 2018. Creatinine Ur 135.6 mg/dL [facility] Comment: Interpretive Data No reference range established. Current interpretive data was last revised 2018. Albumin Creatinine Ratio, Ur 166(H) 1 - 29 mg/g ANAYELI Urine 01/23/2025 10:0 1 AM CDT 01/23/2025 10:16 AM CDT Flora HARO LAB URINE ORDERABLES Fi nal Result [facility] [id number] [place] [address] * (ABNORMAL) POCT hemoglobin A1c (12/02/2024 9:10 AM CDT) Hemoglobin A1C, POC 5.9(A) 4.0 - 5.6 % Capillary blood 12/02/2024 9 :10 AM CDT Flora HARO POINT OF CARE TEST ORDE RABLES Final Result * (ABNORMAL) POCT glucose (12/02/2024 9:10 AM CDT) Glucose Blood, POC 166 Normal Fasting 70 - 100, Random <200 mg/dL Comment:PPG 1 Hrs Blood 12/02/2024 9:10 AM CDT Flora HARO POINT OF CARE TEST ORDE RABLES Final Result * Colonoscopy (09/24/2024 9:32 AM CDT) Anatomical Region Laterality Modality Other Narrative Procedure Note Huy Valiente MD - 09/24/2024 9:32 AM CDT - [facility] Patient Name: Brayden Fuentes Procedure Date: 09/24/2024 9:32 AM Date of : 1975 Admit Type: Outpatient Age: 49 Gender: Male Note Status: Finalized Attending MD: Huy Valiente M.D. Procedure Date: 09/24/2024 Procedure: Colonoscopy Indications: Screening for colorectal malignant neoplasm Providers: Huy Valiente M.D., Harmony Doherty, LALO, Wilfredo Fox, Hog Operator Referring MD: Henri Fajardo Medicines: Monitored Anesthesia Care Complications: No immediate complications. Estimated blood loss: Minimal. Estimated Blood Loss: Estimated blood loss was minimal. Procedure: Pre-Anesthesia Assessment: - Prior to the procedure, a History and Physicalwas performed, and patient medications and allergieswere reviewed. The patient's tolerance of previous anesthesia was also reviewed. The risks andbenefits of the procedure and the sedation options and risks were discussed with the patient. All questions were answered, and informed consent was obtained. Prior Anticoagulants: The patient has taken noanticoagulant or antiplatelet agents. ASA Grade Assessment: III -A patient with severe systemic disease. Afterreviewing the risks and benefits, the patient was deemed in satisfactory condition to undergo the procedure. - The risks and benefits of the procedure and the sedation options and risks were discussed with the patient. All questions were answered and informed consent was obtained. After I obtained informed consent, the scope was passed under direct vision. Throughout theprocedure, the patient's blood pressure, pulse, and oxygen saturations were monitored continuously. The scopewas passed under direct vision. The Colonoscope was introduced through the anus and advanced to the the cecum, identified by appendiceal orifice andileocecal valve. The colonoscopy was technically difficultand complex due to inadequate bowel prep. The patient tolerated the procedure well. The quality of thebowel preparation was inadequate. The ileocecal valve, appendiceal orifice, and rectum were photographed.The bowel preparation used was GoLYTELY. Findings: The perianal and digital rectal examinations were normal. Scattered diverticula were found in the sigmoid colon, descendingcolon and transverse colon. A patchy area of mildly erythematous mucosa was found in the sigmoid colon. This was biopsied with a cold forceps for histology. There were several areas interspersed throughout the distaltransverse colon, the ascending colon and the cecum with a moderate amount ofstool interfering with visualization. External hemorrhoids were found during retroflexion. Impression: 1) Preparation in several areas of the colon was inadequate. 2) Diverticulosis in the sigmoid colon, in the descending colon and in the transverse colon. 3) Erythematous mucosa in the sigmoid colon.Biopsied to r/o IBD. ? related to prep artifact vs. other. 4) External hemorrhoids. Recommendation: - Discharge patient to home (ambulatory). - Patient has a contact number available for emergencies. The signs and symptoms of potential delayed complications were discussed with thepatient. Return to normal activities tomorrow. Written discharge instructions were provided to thepatient. - Resume previous diet. - Continue present medications. - Await pathology results. - Repeat colonoscopy at next available appointment (within 3 months) because the bowel preparation was suboptimal. - Recommend 2 day prep for next colonoscopy. Procedure Code(s): --- Professional --- 03563, Colonoscopy, flexible; with biopsy, singleor multiple Diagnosis Code(s): --- Professional --- Z12.11, Encounter for screening for malignantneoplasm of colon K64.4, Residual hemorrhoidal skin tags K63.89, Other specified diseases of intestine K57.30, Diverticulosis of large intestine without perforation or abscess without bleeding CPT copyright 2020 [employer]. All rights reserved. The codes documented in this report are preliminary and upon electrotype caster reviewmay be revised to meet current compliance requirements. Huy Valiente M.D. 09/24/2024 10:12:19 AM Number of Addenda: 0 Note Initiated On: 09/24/2024 9:32 AM Huy Valiente MD ENDOSCOPY PROCEDURES Edit ed Result - Final * (ABNORMAL) DIABETES EYE EXAM (08/12/2024 7:54 AM SHOW HOST OR HOSTESS) Historical Provider HEALTH MAINTENANCE Final Result * PSA screen (06/27/2024 8:17 AM SHOW HOST OR HOSTESS) PSA-Total 0.70 ng/mL Comment: Interpretive Data AGE SEX REFERENCE INTERVAL 0 minutes-150 years Female None 0 minutes-49 years Male None 50-59 years Male 0-3.90 60-69 years Male 0-5.40 70-79 years Male 0-6.20 80-150 years Male 0-6.20 The Helen PSA Total assay procedure was used. Results from different manufacturers or methods may not be comparable. Serial testing should be performed using the same method. Current interpretive data last revised 21. Blood 06/27/2024 8:17 AM SHOW HOST OR HOSTESS 06/27/2024 12:53 PM SHOW HOST OR HOSTESS Jai Medina PIPE [employer]AYER LAB BLOOD ORDERABLES Final Re sult [facility] [address] [place] [address] * Hepatitis C antibody Blood (06/27/2024 8:17 AM SHOW HOST OR HOSTESS) Hep C Ab Nonreactive Nonreactive Comment: Interpretive Data Nonreactive: Antibodies to HCV not detected. Does NOT exclude the possibility of recent exposure to HCV. Equivocal: Equivocal for HCV antibodies. Supplemental molecular testing will be automatically performed to determine infection status in accordance with current CDC screening recommendations. Reactive: Positive for HCV antibodies. This may represent current or past HCV infection. Supplemental molecular testing will be automatically performed to determine current infection status in accordance with current CDC screening recommendations. Interpretive data was last revised on 2019. Blood 06/27/2024 8:17 AM SHOW HOST OR HOSTESS 06/27/2024 12:53 PM SHOW HOST OR HOSTESS us Jai Medina NP LAB MICROBIOLOGY - GENERAL OR DERABLES Final Result ANAYELI [id number] [place] [address] from Last 3 Months or Most Recently Relevant to Health Maintenance Insurance Advance Directives For more information, please contact: [phone] * Full Code (Latest Code Status on File) Date Activated Date Inactivated Comments 01/20/2024 2:51 PM 01/22/2024 10:31 PM * Full Code Date Activated Date Inactivated Comments 01/20/2024 2:40 PM 01/20/2024 2:51 PM Care Teams Water Treatment Technician Relationship Specialty [place] [id number] [address] [facility] [address] [facility] [address] [facility] [address] [facility] [address] [place] [address] PCP - General Family Medicine 06/27/24
--- OUTSIDE RECORDS SUMMARY | 2025-02-10 19:46 | XMS_ITS | Clinical Summary ---
Author Organization [facility] Address [address] [place] [address] Phone Care Team Providers Care Tool Crib Supervisor Name Role Phone Unavailable Primary Care Provider Unavailabl e Allergies No known active allergies Medications No known medications Active Problems Problem Noted Date Diagnosed Date Epidermal inclusion cyst 03/19/2018 Lump of right breast 03/07/2018 Mastodynia of right breast 03/07/2018 Nonpuerperal mastitis of right breast 03/07/2018 HTN (hypertension) 12/05/2011 Tobacco abuse 12/05/2011 Immunizations Immunization Administration Dates Next Due (ADACEL/BOOSTRIX)(10 YR UP) TDAP VACCINE, 0.5ML, IM 04/28/2010 Family History Medical History Relation Name Comments Healthy Brother 1 Healthy Brother 2 Healthy Daughter Healthy Other Healthy Sister Healthy Son 1 Healthy Son 2 Relation Name Status Comments Brother 1 Alive Brother 2 Alive Daughter Alive Father Alive Maternal Grandfather Alive Maternal Grandmother Mother Alive Other Alive Sister Alive Son 1 Alive Son 2 Alive Social History Tobacco Use Types Packs/Day Years Used Date Smoking Tobacco: Every Day Cigarettes 1 25 Smokeless Tobacco: Never Tobacco Cessation:Ready to Q uit: No Alcohol Use Standard Drinks/Week Comments No 0 (1 standard drink = 0.6 oz pur e alcohol) 25 years Sex and Gender Information Value Date Recorded Sex Assigned at Not on file 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 Gender Identity Not on file Sexual Orientation Not on file Occupation Industry Job Start Date Job End Date Not on file Not on file Not on file Not on file Last Filed Vital Signs Vital Sign Reading Time Taken Comments Blood Pressure 132/94 07/18/2018 3:03 PM ASSISTANT ART DIRECTOR Pulse 94 07/18/2018 3:03 PM ASSISTANT ART DIRECTOR Temperature 36.8 C (98.2 F) 07/18/2018 3:03 PM ASSISTANT ART DIRECTOR Respiratory Rate 20 09/28/2012 10:24 AM CDT Oxygen Saturation 97% 07/18/2018 3:03 PM ASSISTANT ART DIRECTOR Inhaled Oxygen Concentration - - Weight 93.4 kg (206 lb) 07/18/2018 3:03 PM ASSISTANT ART DIRECTOR Height 190.5 cm (6' 3) 07/18/2018 3:03 PM ASSISTANT ART DIRECTOR Body Mass Index 25.75 07/18/2018 3:03 PM ASSISTANT ART DIRECTOR Plan of Treatment Health Maintenance Due Date Last Done Comments HEPATITIS B VACCINES (1 of 3 - 19+ 3-dose series) 01/08 COLORECTAL SCREENING 02/06/2020 Colorectal Cancer Screening 02/06/2020 FIT-DNA Q 3 years 02/06/2020 FIT/FOBT Q 1 year 02/06/2020 Flex Sig/CT Colonography Q 5 years 02/06/2020 DTAP/TDAP/TD VACCINES (2 - Td or Tdap) 04/28/2020 ZOSTER VACCINE (1 of 2) 2025 INFLUENZA VACCINE (#1) 2025
--- OUTSIDE RECORDS SUMMARY | 2025-02-10 19:46 | XMS_ITS | Clinical Summary ---
Author Organization [facility] Address [address] [place] [phone] Care Team Providers Care Equipment Or Machinery Cleaner Name Role Phone Jai Medina NP Primary Care Provider [phone] Allergies No known active allergies Medications glucagon [...] today. Assessment & Plan (07/17/2024 12:38 PM DETAIL DRAFTER): New problem, on screening labs in 07/01. [...] changes. Assessment & Plan (07/17/2024 12:38 PM DETAIL DRAFTER): Chronic problem. On statin therapy, no changes. Encounter for screening for malignant neoplasm o f colon 07/07/2024 Type 1 diabetes mellitus with hyperglycemia 12/2023 Assessment & Plan (12/29/2024 9:56 AM CDT): Discussed follow up with endocrinology. Patient discussed readings of less than 100 before his bedtime insulin so he normally does a snack before bed. Encouraged to discuss with shell reprint operator. Recent Hgb A1c 5.9 noted. Assessment & [...] ACEI/ARB. Assessment & Plan (07/17/2024 12:39 PM DETAIL DRAFTER): Chronic problem, significantly improving. Reviewed his insulin dosing. Continue Lantus 15 units qHS and HL per CR 20 and SF 1:50 >150. Schedule eye exam. He had + MA/cr on screening labs in 07/01. Will repeat next visit and if needed start low dose ACEI or ARB. He needs to schedule with a foot doctor for his thick calluses. He lives in [place] and prefers to see one over there. Referral placed. Assessment & Plan (06/27/2024 12:46 PM DETAIL DRAFTER): A1C 6.4- continue diet changes and insulins [...] of right breast 03/07/2018 HTN (hypertension) 12/05/2011 Encounters Date Type Department Care Team Description 01/26/2025 3:19 PM CDT - 01/26/2025 11:59 PM CDT Hospital Encounter [facility] Diagnostic Imaging [address] [place] [address] Ulcer of left foot, with fat layer exposed (HCC) Discharge Disposition: Discharge to home or self care 01/26/2025 3:02 PM CDT - 01/26/2025 11:59 PM CDT Hospital Encounter [address] [address] Ulcer of left foot, with fat layer exposed (HCC) Discharge Disposition: Discharge to home or self care 01/26/2025 2:30 PM CDT Office Visit [facility] Podiatry at [address] [address] Leighann Charles MD Type 1 diabetes, controlled, with neuropathy (HCC) (Primary Dx); Corns and callosities; Blister of left foot, initial encounter; Ulcer of left foot, with fat layer exposed (HCC); Type 1 diabetes mellitus with hyperglycemia (HCC) 01/26/2025 1:00 PM CDT Office Visit [facility] [address], [place] [address] Ramona Romero MD Type 1 diabetes mellitus with hyperglycemia (HCC) (Primary Dx) 01/26/2025 Results Follow-Up [facility] Podiatry at [address] [address] Leighann Charles MD XR Foot Left Weight-Bearing 3 or More Views, Aerobic and anaerobic culture and gram stain Wound Foot, left 01/23/2025 9:35 AM CDT Lab [address] [address] Toxic thyroid nodule; Type 1 diabetes mellitus with hyperglycemia (HCC) 01/23/2025 Results Follow-Up [facility] [address], [place] [phone] Flora Roland PA TSH, T4, free, T3, free, Additional followed-up results: 4 01/19/2025 Telephone [facility] Gastroenterology at [address] [place] [phone] Huy Valiente MD 12/29/2024 7:30 AM CDT Office Visit [facility] at [address] [phone] Jai Medina, KENO CLERK Type 1 diabetes mellitus with hyperglycemia (HCC) (Primary Dx); Hyperlipidemia due to type 1 diabetes mellitus (HCC); Abnormal thyroid blood test; Need for vaccination; Need for pneumococcal 20-valent conjugate vaccination 12/29/2024 Telephone [facility] at [address] [address] Jai Medina KENO CLERK Medication Problem 12/10/2024 Orders Only [facility] Diabetes and Endocrinology [address] [place] [phone] Jack Serrano MD 12/02/2024 9:15 AM CDT Office Visit [facility] [address], [place] [phone] Flora Roland PA Type 1 diabetes mellitus with hyperglycemia (HCC) (Primary Dx); Toxic thyroid nodule; Hyperlipidemia due to type 1 diabetes mellitus (HCC) from Last 3 Months Immunizations Immunization Administration Dates Next Due Influenza, Unspecified 06/27/2024(Deferr ed: Patient Refused),02/06/2023(Deferred: Patient Refused) Pneumococcal Conjugate Pcv20 12/29/2024 Tdap 04/28/2010 Medical History Medical History Date Comments Diabetes type 1, controlled Social History Tobacco Use Types Packs/Day Years Used Date Smoking Tobacco: Every Day Cigarettes Tobacco Cessation:Ready to Q uit: Not Asked; Counseling Given: Not Answered [facility] Utilities Answer Date Recorded In the [...] often do you attend chur ch or yazidism services? Never 01/22/2024 Do you belong to any clubs o r organizations such as orthodox groups, unions, fraternal or athletic groups, or [...] any time in the past 12 m [facility], were you homeless or living in a senior living (including now)? No 01/22/2024 Personal Safety Answer [...] Orientation Straight 03/14/2024 11 :54 AM CDT Obstetrics History Last Filed Vital Signs Vital Sign Reading [...] Description 02/16/2025 12:45 PM CDT Hospital Encounter [facility] GI Lab [address] [place] [address] [place] [address] [facility] [address] [place] [address] 02/16/2025 12:45 PM CDT - 02/16/2025 1:15 PM CDT Surgery [facility] GI Lab [address] [place] [address] [place] [address] [facility] [address] [place] [address] COLONOSCOPY Scheduled Procedures Name Priority Associated Diagnoses Date/Ti me COLONOSCOPY Screening for colon cancer 02/16/2025 12:45 PM CDT Health Maintenance Due Date Last Done Comments Hepatitis B Screening 1993 DTaP/Tdap/Td Vaccine (2 - Td or Tdap) 04/28/2020 04/28/2010 Zoster Vaccine (1 of 2) 2025 Influenza Vaccine (#1) 2025 Regular Well Visit/Exam 18-64 06/27/2025 06/27/2024 Foot Exam 07/17/2025 07/17/2024, 06/27/2024 Hemoglobin A1C 07/29/2025 01/26/2025, 05/2 01/2025, 06/27/2024, Additional history exists Dilated Eye Exam 08/12/2025 08/12/2024 Depression Screening 12/29/2025 12/29/2024, 03/14/20 24 Albumin Creatinine Ratio, Urine 01/23/2026 , 06/27/2024 Lipid Panel 01/23/2026 01/23/2025, 01/21/2024 TSH Level 01/23/2026 01/23/2025, 01/0 03/2025, 06/27/2024 eGFR 01/23/2026 01/23/2025, 06/09, 01/22/2024, Additional history exists Prostate Cancer Screening-PSA 06/27/2026 06/27/2024 Colon Cancer Screening-Colonoscopy 09/24/20342024 Hepatitis C Screening Completed 06/27/2024 Pneumococcal vaccine <65 Completed 12/29/2024 Procedures Procedure Name Priority Date/Time Associated Diagnosis [...] DIABETES EYE EXAM Routine 08/12/2024 7:54 AM DETAIL DRAFTER HEPATITIS C ANTIBODY Routine 06/27/2024 8:17 AM DETAIL DRAFTER Screening for prostate cancer Prostate cancer screening Encounter for hepatitis C screening test for low risk patient Need for hepatitis B screening test PSA SCREEN Routine 06/27/2024 8:17 AM DETAIL DRAFTER Screening for prostate cancer Prostate cancer screening [...] destruction. Electronically signed by: Leonard Schultz M.D. us Leighann Charles MD IMG XR PROCEDURES Final Result * (ABNORMAL) Aerobic and anaerobic culture and gram stain Wound Foot, left (01/26/2025 3:02 PM CDT) Direct Specimen Exam Stain: No polymorphonuclear leukocytes seen. Few Gram Positive Cocci Rare Gram Negative Bacilli Comment:Testing performed by : [facility], [address] [place]., [address] Report Final Report: Moderate Pasteurella species Resistance to quinolones, tetracyclines, trimethoprim sulfamethoxazole, and azithromycin has not been noted in Pasturella species and therefore, routine susceptibility testing is not performed. Some strains of Pasturella produce a beta-lactamase. Few Mixed microorganisms. (.) ANAYELI Comment:Testing performed by : [facility], [address] [place]., [address] Organism PASTEURELLA SPECIES [facility] Organism MIXED MICROORGANISMS. [facility] Wound (Foot, left) 01/26/2025 3:02 PM CDT 01/26/2025 10:02 PM CDT Narrative ANAYELI - 02/02/2025 1:55 PM CDT Testing performed by [facility] Microbiology Laboratory ([phone]) Specimens submitted from normally sterile body sites [...] 2019. Leighann Charles MD LAB MICROBIOLOGY - [facility] Final Result [facility] [address] Department [place] [address] * (ABNORMAL) POCT hemoglobin A1c (01/26/2025 1:03 PM CDT) Hemoglobin A1C, POC 5.7(A) 4.0 - 5.6 % Capillary blood 01/26/2025 1 :03 PM CDT Ramona Romero MD POINT OF CARE TEST ORDERABLES Fi nal Result * POCT glucose (01/26/2025 1:02 PM CDT) Glucose Blood, POC 177 Normal Fasting 70 - 100, Random <200 mg/dL Blood 01/26/2025 1:02 PM CDT Ramona Romero MD POINT OF CARE TEST ORDERABLES Fi nal Result * eGFR (01/23/2025 10:19 AM CDT) Pathologist [facility] eGFR >90 >=60 mL/min/1. 73 m2 Comment: [...] of Race in Diagnosing Kidney Disease, JASN 2020). The CKD-EPI equation should not be used for patients with unstable renal function and has not been validated in children and those over 70. Current interpretive data was last reviewed 2021. Blood 01/23/2025 10:1 9 AM CDT 01/23/2025 10:19 AM CDT Flora HARO LAB BLOOD ORDERABLES Fi nal Result ANAYELI [address] Department [place] [address] * T3, free (01/23/2025 10:19 AM CDT) Pathologist [facility] Free T3 3.2 2.0 - 4.4 pg/mL Blood 01/23/2025 10:1 9 AM CDT 01/23/2025 10:19 AM CDT Flora HARO LAB BLOOD ORDERABLES Fi nal Result Performing Organization Address [facility] Co de Phone Number ANAYELI HERNANDEZ [address] [place] [address] * TSH (01/23/2025 10:19 AM CDT) Thyroid Stimulating Hormone 0.38 0.30 - 4.20 mcIUnit/mL Blood 01/23/2025 10:1 9 AM CDT 01/23/2025 10:19 AM CDT Flora HARO LAB BLOOD ORDERABLES Fi nal Result Performing Organization Address [facility] de Phone Number ANAYELI HERNANDEZ [address] [place] [address] * T4, free (01/23/2025 10:19 AM CDT) Free T4 1.30 0.90 - 1.70 ng/dL Blood 01/23/2025 10:1 9 AM CDT 01/23/2025 10:19 AM CDT Flora HARO LAB BLOOD ORDERABLES Fi nal Result Performing Organization Address [facility] de Phone Number ANAYELI HERNANDEZ [address] [place] [address] * Lipid panel (01/23/2025 10:19 AM CDT) [...] on 2018. Triglycerides 39 <=149 mg/dL ANAYELI Comment: Interpretive Data Ages < or = [...] on 2018. HDL 50 >=40 mg/dL ANAYELI Comment: Interpretive Data Ages < or = [...] 2018. LDL, calculated 53 <=129 mg/dL ANAYELI Comment: Interpretive Data Ages < or = [...] 3. David Banks et al. JOE Cardiol. 2020 November 06;5(5):540-542. doi: 10.1001/jamacardio.2020.0013 Current Interpretive Data was last revised on 2024. Non-HDL Cholesterol 63 mg/dL CERNER Comment: Interpretive Data Ages < or = [...] last revised on 2018. Chol/HDL ratio 2 CERNER Blood 01/23/2025 10:1 9 AM CDT 01/23/2025 10:19 AM CDT Narrative [facility] - 01/23/2025 10:53 AM CDT These lab test should be done fasting. This means do not eat or drink for at least 12 hours prior to getting your blood drawn. Flora HARO LAB BLOOD ORDERABLES [facility] Result ANAYELI [address] Department [place] [address] * (ABNORMAL) Comprehensive metabolic panel (01/23/2025 10:19 AM CDT) Sodium 139 135 - 145 mmol/L Potassium, pl 4.7 3.3 - 4.9 mmol/L CERNER Chloride 105 97 - 110 mmol/L CERNER CH CO2 24 22 - 32 mmol/L CERNER CH Anion gap 10 2 - 15 mmol/L CERNER CH BUN 19 6 - 25 mg/dL CERNER Creatinine 0.78(L) 0.80 - 1.30 mg/dL CERNER Glucose 107 70 - 199 mg/dL CERNER Comment: Interpretive Data Fasting glucose >/= 126 [...] 2022. Calcium 9.0 8.5 - 10.3 mg/dL [facility] Bilirubin, total 0.4 0.1 - 1.2 mg/dL CERNER CH Protein, pl 6.9 6.5 - 8.5 g/dL CERNER Albumin 3.8 3.5 - 5.0 g/dL [facility] Alk phos 110 40 - 130 Units/L CERNER CH ALT 36 7 - 55 Units/L CERNER CH AST 28 10 - 50 Units/L [facility] Blood 01/23/2025 10:1 9 AM CDT 01/23/2025 10:19 AM CDT Flora HARO LAB BLOOD ORDERABLES Fi nal Result Performing Organization Address [facility] Co de Phone Number ANAYELI [address] Department of Laboratories [place], [place] [phone] * (ABNORMAL) Albumin Creatinine Ratio, Urine (01/23/2025 10:01 AM CDT) Albumin Ur 225.5 mg/L Comment: Interpretive Data No reference range established. Current interpretive data was last revised 2018. Creatinine Ur 135.6 mg/dL [facility] Comment: Interpretive Data No reference range established. Current interpretive data was last revised 2018. Albumin Creatinine Ratio, Ur 166(H) 1 - 29 mg/g [facility] Urine 01/23/2025 10:0 1 AM CDT 01/23/2025 10:16 AM CDT Flora HARO LAB URINE ORDERABLES Fi nal Result Performing Organization Address [facility]/ZIP Co de Phone Number ANAYELI [address] Department [place] [address] * (ABNORMAL) POCT hemoglobin A1c (12/02/2024 9:10 AM CDT) Hemoglobin A1C, POC 5.9(A) 4.0 - 5.6 % Capillary blood 12/02/2024 9:10 AM CDT Flora HARO POINT [...] Valiente MD - 09/24/2024 9:32 AM CDT [facility] Endoscopy Lab Patient Name: Brayden Fuentes Procedure Date: 09/24/2024 9:32 AM Date of : 1975 Admit Type: Outpatient Age: 49 Gender: Male Note Status: Finalized Attending MD: Huy Valiente M.D. Procedure Date: 09/24/2024 Procedure: Colonoscopy Indications: Screening for colorectal malignant neoplasm Providers: Huy Valiente M.D., Harmony Doherty RN, Wilfredo Fox, Director Of Database Marketing Referring MD: Henri Fajardo Medicines: Monitored Anesthesia [...] next colonoscopy. Procedure Code(s): --- Professional --- 78075, Colonoscopy, flexible; with biopsy, singleor multiple Diagnosis Code(s): --- Professional --- Z12.11, Encounter for screening for malignantneoplasm of colon K64.4, Residual hemorrhoidal skin tags K63.89, Other specified diseases of intestine K57.30, Diverticulosis of large intestine without perforation or abscess without bleeding CPT copyright 2020 [employer]. All rights reserved. The codes documented in this report are preliminary and upon roller coaster operator reviewmay be revised to meet current compliance requirements. Huy Valiente M.D. 09/24/2024 10:12:19 AM Number of Addenda: 0 Note Initiated On: 09/24/2024 9:32 AM Huy Valiente MD ENDOSCOPY PROCEDURES Edit ed Result - Final * (ABNORMAL) DIABETES EYE EXAM (08/12/2024 7:54 AM DETAIL DRAFTER) Historical Provider HEALTH MAINTENANCE Final Result * PSA screen (06/27/2024 8:17 AM DETAIL DRAFTER) PSA-Total 0.70 ng/mL Comment: Interpretive Data AGE [...] last revised 21. Blood 06/27/2024 8:17 AM DETAIL DRAFTER 06/27/2024 12:53 PM DETAIL DRAFTER Jai Medina NP LAB BLOOD ORDERABLES Final Re sult Performing Organization Address [facility] Co de Phone Number ANAYELI DAVID [address] [place] [address] * Hepatitis C antibody Blood (06/27/2024 8:17 AM DETAIL DRAFTER) Hep C Ab Nonreactive Nonreactive Comment: Interpretive [...] revised on 2019. Blood 06/27/2024 8:17 AM DETAIL DRAFTER 06/27/2024 12:53 PM DETAIL DRAFTER Jai Medina NP LAB MICROBIOLOGY - GENERAL OR DERABLES Final Result Performing Organization Address [facility]/ZIP Co de Phone Number ANAYELI HERNANDEZ [address] [place] [address] from Last 3 Months or Most Recently Relevant to Health Maintenance Insurance Advance Directives For more information, please contact: [phone] * Full Code (Latest Code Status on File) Date Activated Date Inactivated Comments 01/20/2024 2:51 PM 01/22/2024 10:31 PM * Full Code Date Activated Date Inactivated Comments 01/20/2024 2:40 PM 01/20/2024 2:51 PM Care Teams Equipment Or Machinery Cleaner Relationship Specialty [place] [address] [place] [address] PCP - General Family Medicine 06/27/24
--- OUTSIDE RECORDS SUMMARY | 2025-02-10 19:46 | XMS_ITS | Encounter Summary ---
Author Organization [facility] Address [address] [place] [address] Care Team Providers Care Route Delivery Service Driver Name Role Phone Jolie Phelan MD Primary Care Provider [phone] Encounter Details Date Type Department Care Team (Late st Contact Info) Description 12/02/2002 Emergency [facility] Bebo Ashley MD STREP SORE THROAT (Primary Dx) Social History Tobacco Use Types Packs/Day Years Used Date Smoking Tobacco: Never Assessed Sex and Gender Information Value Date Recorded Sex Assigned at Not on file Legal Sex Male 2:41 AM PLASTICS PATTERNMAKER Gender Identity Not on file Sexual Orientation Not on file documented as of this encounter Plan of Treatment Not on file documented as of this encounter Visit Diagnoses Diagnosis Streptococcal sore throat- Primary documented in this encounter Care Teams Route Delivery Service Driver Relationship Specialty Start Date End Date Jolie Phelan MD PCP - General Family Practice 12/05/11 09/27/12 documented as of this encounter
--- OUTSIDE RECORDS SUMMARY | 2025-02-10 19:46 | XMS_ITS | Encounter Summary ---
Author Organization [facility] Address [address] [place] [address] Care Team Providers Care Agency Operator Name Role Phone Jai Medina NP Primary Care Provider [phone] Encounter Details Date Type Department Care Team (Late st Contact Info) Description 01/26/2025 Results Follow-Up [facility] Podiatry at [address] [address] Leighann Charles MD [address] [place] [address] XR Foot Left Weight-Bearing 3 or More Views, Aerobic and anaerobic culture and gram stain Wound Foot, left Social History Tobacco Use Types Packs/Day Years Used Date Smoking Tobacco: Every Day Cigarettes [facility] Utilities Answer Date Recorded In the past 12 months has e electric, gas, oil, or water company [...] often do you attend chur ch or latter-day services? Never 01/22/2024 Do you belong to any clubs o r organizations such as episcopal groups, unions, fraternal or athletic groups, or [...] any time in the past 12 m [facility], were you homeless or living in a [place] health care facility (including now)? No 01/22/2024 Personal Safety Answer [...] Orientation Straight 03/14/2024 11 :54 AM CDT documented as of this encounter Ordered Prescriptions Prescription Sig Dispense Quantity Refills Last Filled Start Date End Date ciprofloxacin (CIPRO) 500 mg tablet Take 1 tablet (500 mg total) by mouth 2 (two) times a day for 14 days 28 tablet 01/27/2025 02/10/2025 documented in this encounter Plan of Treatment Upcoming Encounters Date Type Department Care Team (Late st Contact Info) Description 02/16/2025 12:45 PM CDT Hospital Encounter [facility] GI Lab [address] [place] [address] [place] [address] [phone] 02/16/2025 12:45 PM CDT - 02/16/2025 1:15 PM CDT Surgery [facility] GI Lab [address] [place] [address] [place] [address] [address] COLONOSCOPY Scheduled Procedures Name Priority Associated Diagnoses Date/Ti me COLONOSCOPY Screening for colon cancer 02/16/2025 12:45 PM CDT documented as of this encounter Visit Diagnoses Not on filedocumented in this encounter Care Teams Agency Operator Relationship Specialty [place] [address] [address] [phone] PCP - General Family Medicine 06/27/24 documented as of this encounter
--- OUTSIDE RECORDS SUMMARY | 2025-02-10 19:46 | XMS_ITS | Encounter Summary ---
Author Organization [facility] Healthcare Address [address] [place] [address] Care Team Providers Care J2Ee Programmer Name Role Phone Jai Medina NP Primary Care Provider [phone] Encounter Details Date Type Department Care Team (Latest Contact Info) Description 01/23/2025 Results Follow-Up [facility] [address] [facility] [address], [place] [address] [place] [address] [facility] [address] [place] [address] TSH, T4, free, T3, free, Additional followed-up results: 4 Social History Tobacco Use Types Packs/Day Years Used Date Smoking Tobacco: Every Day Cigarettes [facility] Utilities Answer Date Recorded In the past [...] any clubs o r organizations such as amish groups, unions, fraternal or athletic groups, or [...] any time in the past 12 m [facility], were you homeless or living in a care home (including now)? No 01/22/2024 Personal Safety Answer [...] AM CDT documented as of this encounter Plan of Treatment Upcoming Encounters Date Type Department Care Team (Late st Contact Info) Description 02/16/2025 12:45 PM CDT Hospital Encounter [facility] GI Lab [address] [place], [place] [phone] [place] [address] [address] [facility] [address], [place] [phone] 02/16/2025 12:45 PM CDT - 02/16/2025 1:15 PM CDT Surgery [facility] GI Lab [address] [place] [address] [place] [address] [address] COLONOSCOPY Scheduled Procedures Name Priority Associated Diagnoses Date/Ti me COLONOSCOPY Screening for colon cancer 02/16/2025 12:45 PM CDT documented as of this encounter Visit Diagnoses Not on filedocumented in this encounter Care Teams J2Ee Programmer Relationship Specialty [place] [address] [place] [address] PCP - General Family Medicine 06/27/24 documented as of this encounter
[2025-02-10 19:47] VITALS: BP 130/80; PULSE 73; RESP 17; TEMP 36.6; O2SAT 100
[2025-02-10 20:18] VITALS: BP 119/67; PULSE 71; RESP 17; TEMP 36.6; O2SAT 100
[2025-02-10 20:26] VITALS: BP 119/67; PULSE 71; RESP 17; TEMP 36.7; O2SAT 100
--- OUTSIDE RECORDS SUMMARY | 2025-02-10 20:49 | XMS_ITS | Encounter Summary ---
Author Organization [facility] Healthcare Address [address] [place] [address] Care Team Providers Care Substation Operator Helper Generation Name Role Phone Jai Medina NP Primary Care Provider [phone] Encounter Details Date Type Department Care Team (Latest Contact Info) Description 01/23/2025 Results Follow-Up [facility] [address] [facility] [address], [place] [address] [place] [address] [facility] [address] [place] [address] TSH, T4, free, T3, free, Additional followed-up results: 4 Social History Tobacco Use Types Packs/Day Years Used Date Smoking Tobacco: Every Day Cigarettes [facility] Utilities Answer Date Recorded In the past [...] often do you attend chur ch or religion services? Never 01/22/2024 Do you belong to any clubs o r organizations such as judaism groups, unions, fraternal or athletic groups, or [...] any time in the past 12 m [facility], were you homeless or living in a usp (including now)? No 01/22/2024 Personal Safety Answer [...] Description 02/16/2025 12:45 PM CDT Hospital Encounter [facility] Lab [address] [place], [place] [phone] [place] [address] [address] [facility] [address], [place] [id number] 02/16/2025 12:45 PM CDT - 02/16/2025 1:15 PM CDT Surgery [facility] Lab [address] [place] [address] [place] [address] [address] COLONOSCOPY Scheduled Procedures Name Priority Associated Diagnoses Date/Ti me COLONOSCOPY Screening for colon cancer 02/16/2025 12:45 PM CDT documented as of this encounter Visit Diagnoses Not on filedocumented in this encounter Care Teams Substation Operator Helper Generation Relationship Specialty [place] [address] [address] [place] [address] PCP - General Family Medicine 06/27/24 documented as of this encounter
--- OUTSIDE RECORDS SUMMARY | 2025-02-10 20:49 | XMS_ITS | Encounter Summary ---
Author Organization [facility] Healthcare Address [address] [place] [address] Care Team Providers Care Hybrid Powertrain Development Engineer Name Role Phone Jai Medina NP Primary Care Provider [phone] Encounter Details Date Type Department Care Team (Late st Contact Info) Description 01/26/2025 Results Follow-Up [facility] Medical Group Podiatry at [address] [address] Leighann Charles MD [address] [place] [address] XR Foot Left Weight-Bearing 3 or More Views, Aerobic and anaerobic culture and gram stain Wound Foot, left Social History Tobacco Use Types Packs/Day Years Used Date Smoking Tobacco: Every Day Cigarettes [facility] Utilities Answer Date Recorded In the [...] often do you attend chur ch or roman catholic services? Never 01/22/2024 Do you belong to any clubs o r organizations such as oriental orthodox groups, unions, fraternal or athletic groups, [...] any time in the past 12 m [facility], were you homeless or living in a assisted (including now)? No 01/22/2024 Personal Safety Answer [...] Description 02/16/2025 12:45 PM CDT Hospital Encounter [facility] GI Lab [address] [place] [address] [place] [address] [id number] 02/16/2025 12:45 PM CDT - 02/16/2025 1:15 PM CDT Surgery [facility] GI Lab [address] [place] [address] [place] [address] [address] COLONOSCOPY Scheduled Procedures Name Priority Associated Diagnoses Date/Ti me COLONOSCOPY Screening for colon cancer 02/16/2025 12:45 PM CDT documented as of this encounter Visit Diagnoses Not on filedocumented in this encounter Care Teams Hybrid Powertrain Development Engineer Relationship Specialty [place] [address] [address] [id number] PCP - General Family Medicine 06/27/24 documented as of this encounter
--- OUTSIDE RECORDS SUMMARY | 2025-02-10 20:49 | XMS_ITS | Clinical Summary ---
Author Organization [facility] Address [address] [place] [phone] Care Team Providers Care Cook Frozen Dessert Name Role Phone Jai Medina NP Primary Care Provider [phone] Allergies No known active allergies Medications glucagon [...] today. Assessment & Plan (07/17/2024 12:38 PM SENIOR DATA ANALYST): New problem, on screening labs in 07/01. [...] changes. Assessment & Plan (07/17/2024 12:38 PM SENIOR DATA ANALYST): Chronic problem. On statin therapy, no changes. Encounter for screening for malignant neoplasm o f colon 07/07/2024 Type 1 diabetes mellitus with hyperglycemia 12/2023 Assessment & Plan (12/29/2024 9:56 AM CDT): Discussed follow up with endocrinology. Patient discussed readings of less than 100 before his bedtime insulin so he normally does a snack before bed. Encouraged to discuss with solutions market consultant. Recent Hgb A1c 5.9 noted. Assessment & [...] ACEI/ARB. Assessment & Plan (07/17/2024 12:39 PM SENIOR DATA ANALYST): Chronic problem, significantly improving. Reviewed his insulin dosing. Continue Lantus 15 units qHS and HL per CR 20 and SF 1:50 >150. Schedule eye exam. He had + MA/cr on screening labs in 07/01. Will repeat next visit and if needed start low dose ACEI or ARB. He needs to schedule with a foot doctor for his thick calluses. He lives in [place] and prefers to see one over there. Referral placed. Assessment & Plan (06/27/2024 12:46 PM SENIOR DATA ANALYST): A1C 6.4- continue diet changes and insulins [...] - 01/26/2025 11:59 PM CDT Hospital Encounter [facility] Diagnostic Imaging [address] [place] [address] Ulcer of left foot, with fat layer exposed (HCC) Discharge Disposition: Discharge to home or self care 01/26/2025 3:02 PM CDT - 01/26/2025 11:59 PM CDT Hospital Encounter [address] [address] Ulcer of left foot, with fat layer exposed (HCC) Discharge Disposition: Discharge to home or self care 01/26/2025 2:30 PM CDT Office Visit [facility] Medical Group Podiatry at [address] [address] Leighann Charles MD Type 1 diabetes, controlled, with neuropathy (HCC) (Primary Dx); Corns and callosities; Blister of left foot, initial encounter; Ulcer of left foot, with fat layer exposed (HCC); Type 1 diabetes mellitus with hyperglycemia (HCC) 01/26/2025 1:00 PM CDT Office Visit [facility] of [address], [place] [address] Ramona Romero MD Type 1 diabetes mellitus with hyperglycemia (HCC) (Primary Dx) 01/26/2025 Results Follow-Up [facility] Medical Group Podiatry at [address] [address] Leighann Charles MD XR Foot Left Weight-Bearing 3 or More Views, Aerobic and anaerobic culture and gram stain Wound Foot, left 01/23/2025 9:35 AM CDT Lab [address] [address] Toxic thyroid nodule; Type 1 diabetes mellitus with hyperglycemia (HCC) 01/23/2025 Results Follow-Up [facility] Specialists of [address], [place] [phone] Flora Roland PA TSH, T4, free, T3, free, Additional followed-up results: 4 01/19/[address] [facility] Medical Group Gastroenterology at [address] [place] [phone] Huy Valiente MD 12/29/2024 7:30 AM CDT Office Visit Family Care at [address] [phone] Jai Medina, MITER SAWYER Type 1 diabetes mellitus with hyperglycemia (HCC) (Primary Dx); Hyperlipidemia due to type 1 diabetes mellitus (HCC); Abnormal thyroid blood test; Need for vaccination; Need for pneumococcal 20-valent conjugate vaccination 12/29/2024 Telephone [facility] at [address] [address] Jai Medina MITER SAWYER Medication Problem 12/10/[address] [facility] Medical Group Diabetes and Endocrinology [address] [place] [phone] Jack Serrano MD 12/02/2024 9:15 AM CDT Office Visit [facility] Specialists of [address], [place] [phone] Flora Roland PA Type 1 diabetes mellitus [...] uit: Not Asked; Counseling Given: Not Answered [facility] Utilities Answer Date Recorded In the past [...] often do you attend chur ch or temple services? Never 01/22/2024 Do you belong to any clubs o r organizations such as advent groups, unions, fraternal or athletic groups, or [...] any time in the past 12 m [facility], were you homeless or living in a fci (including now)? No 01/22/2024 Personal Safety Answer [...] Description 02/16/2025 12:45 PM CDT Hospital Encounter [facility] GI Lab [address] [place] [address] [place] [address] [facility] [address] [place] [address] 02/16/2025 12:45 PM CDT - 02/16/2025 1:15 PM CDT Surgery [facility] GI Lab [address] [place] [address] [place] [address] [facility] [address] [place] [address] COLONOSCOPY Scheduled Procedures Name Priority Associated Diagnoses [...] DIABETES EYE EXAM Routine 08/12/2024 7:54 AM SENIOR DATA ANALYST HEPATITIS C ANTIBODY Routine 06/27/2024 8:17 AM SENIOR DATA ANALYST Screening for prostate cancer Prostate cancer screening Encounter for hepatitis C screening test for low risk patient Need for hepatitis B screening test PSA SCREEN Routine 06/27/2024 8:17 AM SENIOR DATA ANALYST Screening for prostate cancer Prostate cancer screening [...] Bacilli Comment:Testing performed by : [facility], [address] [place]., [address] Report Final Report: Moderate Pasteurella species Resistance to quinolones, tetracyclines, trimethoprim sulfamethoxazole, and azithromycin has not been noted in Pasturella species and therefore, routine susceptibility testing is not performed. Some strains of Pasturella produce a beta-lactamase. Few Mixed microorganisms. (.) ANAYELI Comment:Testing performed by : [facility], [address] [place]., [address] Organism PASTEURELLA SPECIES [facility] Organism MIXED MICROORGANISMS. [facility] Wound (Foot, left) 01/26/2025 3:02 PM CDT 01/26/2025 10:02 PM CDT Narrative ANAYELI - 02/02/2025 1:55 PM CDT Testing performed by [facility] Microbiology Laboratory ([phone]) Specimens submitted from normally sterile body sites [...] 2019. Leighann Charles MD LAB MICROBIOLOGY - [facility] Final Result [facility] [address] [place] [address] * (ABNORMAL) POCT hemoglobin A1c (01/26/2025 1:03 [...] eGFR (01/23/2025 10:19 AM CDT) Pathologist [facility] eGFR >90 >=60 mL/min/1. 73 m2 Comment: [...] LAB BLOOD ORDERABLES Fi nal Result ANAYELI [address] [place] [address] * T3, free (01/23/2025 10:19 AM CDT) Pathologist [facility] Free T3 3.2 2.0 - 4.4 pg/mL Blood 01/23/2025 10:1 9 AM CDT 01/23/2025 10:19 AM CDT Flora HARO LAB BLOOD ORDERABLES Fi nal Result Performing Organization Address [facility] Co de Phone Number ANAYELI HERNANDEZ [address] [place] [address] * TSH (01/23/2025 10:19 AM CDT) Thyroid Stimulating Hormone 0.38 0.30 - 4.20 mcIUnit/mL Blood 01/23/2025 10:1 9 AM CDT 01/23/2025 10:19 AM CDT Flora HARO LAB BLOOD ORDERABLES Fi nal Result Performing Organization Address [facility] de Phone Number ANAYELI HERNANDEZ [address] [place] [address] * T4, free (01/23/2025 10:19 AM CDT) Free T4 1.30 0.90 - 1.70 ng/dL Blood 01/23/2025 10:1 9 AM CDT 01/23/2025 10:19 AM CDT Flora HARO LAB BLOOD ORDERABLES Fi nal Result Performing Organization Address [facility] de Phone Number ANAYELI HERNANDEZ [address] [place] [address] * Lipid panel (01/23/2025 10:19 AM CDT) [...] AM CDT 01/23/2025 10:19 AM CDT Narrative [facility] - 01/23/2025 10:53 AM CDT These lab test should be done fasting. This means do not eat or drink for at least 12 hours prior to getting your blood drawn. Flora HARO LAB BLOOD ORDERABLES [facility] Result ANAYELI [address] [place] [address] * (ABNORMAL) Comprehensive metabolic panel (01/23/2025 10:19 [...] 2022. Calcium 9.0 8.5 - 10.3 mg/dL [facility] Bilirubin, total 0.4 0.1 - 1.2 mg/dL [facility] CH Protein, pl 6.9 6.5 - 8.5 g/dL [facility] Albumin 3.8 3.5 - 5.0 g/dL [facility] Alk phos 110 40 - 130 Units/L [facility] ALT 36 7 - 55 Units/L [facility] AST 28 10 - 50 Units/L [facility] Blood 01/23/2025 10:1 9 AM CDT 01/23/2025 10:19 AM CDT Flora HARO LAB BLOOD ORDERABLES Fi nal Result Performing Organization Address [facility] Co de Phone Number ANAYELI [address] Department of Laboratories [place], [place] [phone] * (ABNORMAL) Albumin Creatinine Ratio, Urine (01/23/2025 10:01 AM CDT) Albumin Ur 225.5 mg/L Comment: Interpretive Data No reference range established. Current interpretive data was last revised 2018. Creatinine Ur 135.6 mg/dL [facility] Comment: Interpretive Data No reference range established. Current interpretive data was last revised 2018. Albumin Creatinine Ratio, Ur 166(H) 1 - 29 mg/g [facility] Urine 01/23/2025 10:0 1 AM CDT 01/23/2025 10:16 AM CDT Flora HARO LAB URINE ORDERABLES Fi nal Result Performing Organization Address [facility]/ZIP Co de Phone Number ANAYELI [address] [place] [address] * (ABNORMAL) POCT hemoglobin A1c (12/02/2024 9:10 [...] Valiente MD - 09/24/2024 9:32 AM CDT [facility] Endoscopy Lab Patient Name: Baryden Fuentes Procedure Date: 09/24/2024 9:32 AM Date of : 1975 Admit Type: Outpatient Age: 49 Gender: Male Note Status: Finalized Attending MD: Huy Valiente M.D. Procedure Date: 09/24/2024 Procedure: Colonoscopy Indications: Screening for colorectal malignant neoplasm Providers: Huy Valietne M.D., Harmony Doherty RN, Wilfredo Fox, Licensed Direct Entry Midwife Referring MD: Henri Fajardo Medicines: Monitored Anesthesia [...] next colonoscopy. Procedure Code(s): --- Professional --- 41594, Colonoscopy, flexible; with biopsy, singleor multiple Diagnosis Code(s): --- Professional --- Z12.11, Encounter for screening for malignantneoplasm of colon K64.4, Residual hemorrhoidal skin tags K63.89, Other specified diseases of intestine K57.30, Diverticulosis of large intestine without perforation or abscess without bleeding CPT copyright 2020 [employer]. All rights reserved. The codes documented in this report are preliminary and upon sole layer hand reviewmay be revised to meet current compliance requirements. Huy Valiente M.D. 09/24/2024 10:12:19 AM Number of Addenda: 0 Note Initiated On: 09/24/2024 9:32 AM Huy Valiente MD ENDOSCOPY PROCEDURES Edit ed Result - Final * (ABNORMAL) DIABETES EYE EXAM (08/12/2024 7:54 AM SENIOR DATA ANALYST) Historical Provider HEALTH MAINTENANCE Final Result * PSA screen (06/27/2024 8:17 AM SENIOR DATA ANALYST) PSA-Total 0.70 ng/mL Comment: Interpretive Data AGE [...] last revised 21. Blood 06/27/2024 8:17 AM SENIOR DATA ANALYST 06/27/2024 12:53 PM SENIOR DATA ANALYST Jai Medina NP LAB BLOOD ORDERABLES Final Re sult Performing Organization Address [facility] Co de Phone Number ANAYELI DAVID [address] [facility] [place] [address] * Hepatitis C antibody Blood (06/27/2024 8:17 AM SENIOR DATA ANALYST) Hep C Ab Nonreactive Nonreactive Comment: Interpretive [...] revised on 2019. Blood 06/27/2024 8:17 AM SENIOR DATA ANALYST 06/27/2024 12:53 PM SENIOR DATA ANALYST Jai Medina NP LAB MICROBIOLOGY - GENERAL OR DERABLES Final Result Performing Organization Address City/[facility]/ZIP Co de Phone Number ANAYELI HERNANDEZ [address] [facility] [place] [address] from Last 3 Months or Most Recently Relevant to Health Maintenance Insurance Advance Directives For more information, please contact: [phone] * Full Code (Latest Code Status on File) Date Activated Date Inactivated Comments 01/20/2024 2:51 PM 01/22/2024 10:31 PM * Full Code Date Activated Date Inactivated Comments 01/20/2024 2:40 PM 01/20/2024 2:51 PM Care Teams Cook Frozen Dessert Relationship Specialty [place] [address] [place] [address] PCP - General Family Medicine 06/27/24
--- OUTSIDE RECORDS SUMMARY | 2025-02-10 20:49 | XMS_ITS | Referral Summary ---
Author Organization [facility] Address [address] [place] [phone] Care Team Providers Care Stockroom Worker Name Role Phone Jai Medina NP Primary Care Provider [phone] Encounters Date Type Department Care Team Description 01/26/2025 3:02 PM CDT - 01/26/2025 11:59 PM CDT Hospital Encounter [address] [phone] Ulcer of left foot, with fat layer exposed (HCC) Discharge Disposition: Discharge to home or self care 01/26/2025 Results Follow-Up [facility] Podiatry at [address] [phone] Leighann Charles MD XR Foot Left Weight-Bearing 3 or More Views, Aerobic and anaerobic culture and gram stain Wound Foot, left 01/26/2025 3:19 PM CDT - 01/26/2025 11:59 PM CDT Hospital Encounter [facility] Diagnostic Imaging [address] [place] [phone] Ulcer of left foot, with fat layer exposed (HCC) Discharge Disposition: Discharge to home or self care 01/26/2025 2:30 PM CDT Office Visit [facility] Pod[facility]ry at [address] [phone] Leighann Charles MD Type 1 diabetes, controlled, with neuropathy (HCC) (Primary Dx); Corns and callosities; Blister of left foot, initial encounter; Ulcer of left foot, with fat layer exposed (HCC); Type 1 diabetes mellitus with hyperglycemia (HCC) 01/26/2025 1:00 PM CDT Office Visit [facility] [address], [place] [phone] Ramona Romero MD Type 1 diabetes mellitus with hyperglycemia (HCC) (Primary Dx) 01/23/2025 Results Follow-Up [facility] of [address] [phone] Flora Roland PA TSH, T4, free, T3, free, Additional followed-up results: 4 01/23/2025 9:35 AM CDT Lab [address] [address] Toxic thyroid nodule; Type 1 diabetes mellitus with hyperglycemia (HCC) 01/19/2025 Telephone [facility] Gastroenterology at [address], [place] [phone] Huy Valiente MD 12/29/2024 Telephone [facility] at [address] [phone] Jai Medina NP Medication Problem 12/29/2024 7:30 AM CDT Office Visit [facility] at [address] [phone] Jai Medina NP Type 1 diabetes mellitus with hyperglycemia (HCC) (Primary Dx); Hyperlipidemia due to type 1 diabetes mellitus (HCC); Abnormal thyroid blood test; Need for vaccination; Need for pneumococcal 20-valent conjugate vaccination 12/10/2024 Orders Only [facility] Diabetes and Endocrinology [address] [place] [phone] Jack Serrano MD 12/02/2024 9:15 AM CDT Office Visit [facility] of [address] [phone] Flora Roland PA Type 1 [...] today. Assessment & Plan (07/17/2024 12:38 PM MACHINE ERECTOR): New problem, on screening labs in 07/01. [...] changes. Assessment & Plan (07/17/2024 12:38 PM MACHINE ERECTOR): Chronic problem. On statin therapy, no changes. Encounter for screening for malignant neoplasm o f colon 07/07/2024 Type 1 diabetes mellitus with hyperglycemia 12/2023 Assessment & Plan (12/29/2024 9:56 AM CDT): Discussed follow up with endocrinology. Patient discussed readings of less than 100 before his bedtime insulin so he normally does a snack before bed. Encouraged to discuss with firebrick layer. Recent Hgb A1c 5.9 noted. Assessment & [...] ACEI/ARB. Assessment & Plan (07/17/2024 12:39 PM MACHINE ERECTOR): Chronic problem, significantly improving. Reviewed his insulin dosing. Continue Lantus 15 units qHS and HL per CR 20 and SF 1:50 >150. Schedule eye exam. He had + MA/cr on screening labs in 07/01. Will repeat next visit and if needed start low dose ACEI or ARB. He needs to schedule with a foot doctor for his thick calluses. He lives in [place] and prefers to see one over there. Referral placed. Assessment & Plan (06/27/2024 12:46 PM MACHINE ERECTOR): A1C 6.4- continue diet changes and insulins [...] uit: Not Asked; Counseling Given: Not Answered [facility] Utilities Answer Date Recorded In the [...] often do you attend chur ch or anabaptist services? Never 01/22/2024 Do you belong to [...] any time in the past 12 m [facility], were you homeless or living in a long-term (including now)? No 01/22/2024 Personal Safety Answer [...] Description 02/16/2025 12:45 PM CDT Hospital Encounter [facility] GI Lab [address] [place] [address] [place] [address] [facility] [address] [place] [address] 02/16/2025 12:45 PM CDT - 02/16/2025 1:15 PM CDT Surgery [facility] Lab [address] [place] [address] [place] [address] [facility] [address] [place] [address] COLONOSCOPY Scheduled Procedures Name Priority Associated Diagnoses [...] DIABETES EYE EXAM Routine 08/12/2024 7:54 AM MACHINE ERECTOR HEPATITIS C ANTIBODY Routine 06/27/2024 8:17 AM MACHINE ERECTOR Screening for prostate cancer Prostate cancer screening Encounter for hepatitis C screening test for low risk patient Need for hepatitis B screening test PSA SCREEN Routine 06/27/2024 8:17 AM MACHINE ERECTOR Screening for prostate cancer Prostate cancer screening [...] Negative Bacilli Comment:Testing performed by : [facility], [address] [place]., [address] Report Final Report: Moderate Pasteurella species Resistance to quinolones, tetracyclines, trimethoprim sulfamethoxazole, and azithromycin has not been noted in Pasturella species and therefore, routine susceptibility testing is not performed. Some strains of Pasturella produce a beta-lactamase. Few Mixed microorganisms. (.) ANAYELI Comment:Testing performed by : [facility], [address] [place] [address]., [id number] Organism PASTEURELLA SPECIES [facility] Organism MIXED MICROORGANISMS. [facility]Foot, left) 01/26/2025 3:02 PM CDT 01/26/2025 10:02 PM CDT Narrative ANAYELI - 02/02/2025 1:55 PM CDT Testing performed by [facility] Microbiology Laboratory ([phone]) Specimens submitted from normally sterile body sites [...] Leighann Charles MD [facility] Final Result ANAYELI HERNANDEZ [address] Department [place] [address] * (ABNORMAL) POCT hemoglobin A1c (01/26/2025 1:03 [...] ORDERABLES Fi nal Result Performing Organization Address City/[facility] Co de Phone Number JASPREETPATEL HERNANDEZ [address] [place] [address] * T3, free (01/23/2025 10:19 AM CDT) Free T3 3.2 2.0 - 4.4 pg/mL Blood 01/23/2025 10:1 9 AM CDT 01/23/2025 10:19 AM CDT Flora HARO LAB BLOOD ORDERABLES Fi nal Result Performing Organization Address [facility] de Phone Number ANAYELI DAVID [address] [place] [address] * TSH (01/23/2025 10:19 AM CDT) Thyroid Stimulating Hormone 0.38 0.30 - 4.20 mcIUnit/mL Blood 01/23/2025 10:1 9 AM CDT 01/23/2025 10:19 AM CDT Flora HARO LAB BLOOD ORDERABLES Fi nal Result Performing Organization Address [facility] Co de Phone Number ANAYELI DAVID [address] [place] [address] * T4, free (01/23/2025 10:19 AM CDT) Free T4 1.30 0.90 - 1.70 ng/dL Blood 01/23/2025 10:1 9 AM CDT 01/23/2025 10:19 AM CDT Flora HARO LAB BLOOD ORDERABLES Fi nal Result Performing Organization Address City/[facility] Co de Phone Number ANAYELI DAVID [address] Department [place] [address] * Lipid panel (01/23/2025 10:19 AM CDT) [...] BLOOD ORDERABLES Fi nal Result ANAYELI HERNANDEZ [address] Department [place] [address] * (ABNORMAL) Comprehensive metabolic panel (01/23/2025 10:19 [...] BLOOD ORDERABLES Fi nal Result ANAYELI HERNANDEZ [address] Department [place] [address] * (ABNORMAL) Albumin Creatinine Ratio, Urine (01/23/2025 10:01 AM CDT) Albumin Ur 225.5 mg/L Comment: Interpretive Data No reference range established. Current interpretive data was last revised 2018. Creatinine Ur 135.6 mg/dL [facility] Comment: Interpretive Data No reference range established. Current interpretive data was last revised 2018. Albumin Creatinine Ratio, Ur 166(H) 1 - 29 mg/g ANAYELI Urine 01/23/2025 10:0 1 AM CDT 01/23/2025 10:16 AM CDT Flora HARO LAB URINE ORDERABLES Fi nal Result [facility] [address] Department [place] [address] * (ABNORMAL) POCT hemoglobin A1c (12/02/2024 9:10 [...] MD - 09/24/2024 9:32 AM CDT - [facility] Endoscopy Lab Patient Name: Brayden Fuentes Procedure Date: 09/24/2024 9:32 AM Date of : 1975 Admit Type: Outpatient Age: 49 Gender: Male Note Status: Finalized Attending MD: Huy Valiente M.D. Procedure Date: 09/24/2024 Procedure: Colonoscopy Indications: Screening for colorectal malignant neoplasm Providers: Huy Valiente M.D., Harmony Doherty, LALO, Wilfredo Fox, Md Pediatric Allergist Referring MD: Henri Fajardo Medicines: Monitored Anesthesia [...] next colonoscopy. Procedure Code(s): --- Professional --- 62062, Colonoscopy, flexible; with biopsy, singleor multiple Diagnosis Code(s): --- Professional --- Z12.11, Encounter for screening for malignantneoplasm of colon K64.4, Residual hemorrhoidal skin tags K63.89, Other specified diseases of intestine K57.30, Diverticulosis of large intestine without perforation or abscess without bleeding CPT copyright 2020 [employer]. All rights reserved. The codes documented in this report are preliminary and upon auditing coder reviewmay be revised to meet current compliance requirements. Huy Valiente M.D. 09/24/2024 10:12:19 AM Number of Addenda: 0 Note Initiated On: 09/24/2024 9:32 AM Huy Valiente MD ENDOSCOPY PROCEDURES Edit ed Result - Final * (ABNORMAL) DIABETES EYE EXAM (08/12/2024 7:54 AM MACHINE ERECTOR) Historical Provider HEALTH MAINTENANCE Final Result * PSA screen (06/27/2024 8:17 AM MACHINE ERECTOR) PSA-Total 0.70 ng/mL Comment: Interpretive Data AGE [...] last revised 21. Blood 06/27/2024 8:17 AM MACHINE ERECTOR 06/27/2024 12:53 PM MACHINE ERECTOR Jai Medina [employer] LAB BLOOD ORDERABLES [place] [address] [address] Department [place] [address] * Hepatitis C antibody Blood (06/27/2024 8:17 AM MACHINE ERECTOR) Hep C Ab Nonreactive Nonreactive Comment: Interpretive [...] revised on 2019. Blood 06/27/2024 8:17 AM MACHINE ERECTOR 06/27/2024 12:53 PM MACHINE ERECTOR us Jai Medina NP LAB MICROBIOLOGY - GENERAL OR DERABLES Final Result ANAYELI [address] Department [place] [address] from Last 3 Months or Most Recently Relevant to Health Maintenance Insurance Advance Directives For more information, please contact: [phone] * Full Code (Latest Code Status on File) Date Activated Date Inactivated Comments 01/20/2024 2:51 PM 01/22/2024 10:31 PM * Full Code Date Activated Date Inactivated Comments 01/20/2024 2:40 PM 01/20/2024 2:51 PM Care Teams Stockroom Worker Relationship Specialty [place] [address] [address] [facility] [address] [facility] [address] [facility] 2 [facility] [address] [place] [address] PCP - General Family Medicine 06/27/24
--- NOTE | 2025-02-10 21:12 | ED.DENTAL ---
HPI - Dental/Oral General Chief complaint: Dental/Oral Stated complaint: severe tooth ache Time Seen by Provider: 02/10/25 20:24 History of Present Illness HPI Narrative: 50-year-old male with reported history of insulin-dependent diabetes presents to the emergency department for dental pain for 2 days. Patient states he has known poor dentition and very few teeth remaining. He is reporting pain to the right lower gumline. He denies injury trauma, fever. States the pain radiates into his right ear. Denies difficulty breathing or swallowing, sore throat. Patient is also requesting to have his glucose checked. States he last took insulin this morning. Related Data Allergies Allergy/AdvReac Type Severity Reaction Status Date / Time No Known Allergies Allergy Verified 02/10/25 20:24 Review of Systems Review of Systems: All systems reviewed & are unremarkable except as noted in HPI and below PMFSH Past Medical History Medical History Healthy adult male Social History Social History Living arrangements: with family Gender identity (if verbalized by the patient): Male Sexual Orientation (if Verbalized by the Patient): Straight or Heterosexual Exam Narrative: GENERAL: Well-appearing, well-nourished, and in no acute distress. HEAD: Normocephalic, atraumatic. EYES: PERRLA and EOMI. ENT: Nares clear, no rhinorrhea or epistaxis. Mucous membranes moist. Right TM with serous effusion, no erythema or bulging. Left TM is king nonbulging normal canals. No tenderness over the mastoids. Poor dentition throughout with very few teeth remaining which are cavitied. Tenderness to the right lower gumline with palpation. No induration or fluctuance. No submandibular swelling. No airway compromise. No trismus. Posterior pharynx is without erythema or edema. No tonsillar hypertrophy or exudates. NECK: Supple. CHEST: Clear to auscultation. No respiratory distress. HEART: Regular rate and rhythm. No murmur heard. Normal peripheral pulses. EXTREMITIES: Normal range of motion. No edema. SKIN: Warm, dry, no rash. NEURO: No focal deficits. Alert and oriented x3 Course Vital Signs Vital signs: Vital Signs Temperature 97.9 F 02/10/25 19:47 Pulse Rate 73 02/10/25 19:47 Respiratory Rate 17 02/10/25 19:47 Blood Pressure 130/80 02/10/25 19:47 Pulse Oximetry 100 02/10/25 19:47 Oxygen Delivery Room Air 02/10/25 19:47 Temperature 98.1 F 02/10/25 20:26 Pulse Rate 71 02/10/25 20:26 Respiratory Rate 17 02/10/25 20:26 Blood Pressure 119/67 02/10/25 20:26 Pulse Oximetry 100 02/10/25 20:26 Oxygen Delivery Room Air 02/10/25 20:18 MDM - Dental/Oral MDM Narrative Medical decision making narrative: 50-year-old male with reported history of insulin-dependent diabetes presents to the emergency department for dental pain for the past 2 days. Patient is known poor dentition and very few teeth remaining. Vitals are stable. Exam is notable for the above. No evidence of periapical abscess or deep space infection. No trismus or airway compromise. Will start him on Augmentin for toothache and dental caries. Patient was provided a list of dentists referrals. He was given [place] in the ED for pain control, Tylenol, ibuprofen and viscous lidocaine sent to pharmacy for pain. Point of care glucose normal at 117. Patient was given strict ED return precautions. He is agreeable with the plan verbalized understanding. Discharged in stable condition. Lab Data Labs: Lab Results 02/10/25 Range/Units 22:23 POC Capillary Glucose 117 H (65-105) mg/dl Discharge Plan Discharge Clinical Impression: Toothache, Dental caries Patient Disposition: Home Condition: Stable Instructions: Antibiotic Form, Toothache (ED) Additional Instructions: Please take the antibiotics and pain medications as directed. Follow-up closely with a dentist. Return to the emergency department if you develop a fever 100.4 or greater, difficulty breathing or swallowing, or other concerning symptoms. Patient Language: Lao Prescriptions: New acetaminophen 500 mg capsule 500 mg PO Q6H PRN (Reason: pain) Qty: 14 0RF ibuprofen 800 mg tablet 800 mg PO TID PRN (Reason: pain) Qty: 20 0RF lidocaine HCl [Lidocaine Viscous] 2 % solution 1 applic mucous membrane BID PRN (Reason: pain) Qty: 100 0RF amoxicillin-pot clavulanate 875-125 mg tablet 1 tablet PO Q12H Qty: 14 0RF No Action ibuprofen 600 mg tablet 600 mg PO TID PRN (Reason: pain) 10 Days Qty: 30 0RF acyclovir 800 mg tablet See Rx Instructions .ROUTE .COMPLEX Qty: 35 0RF Rx Instructions: 800 mg orally 5x/day x7 days diphenhydramine HCl 25 mg capsule 25 mg PO TID PRN (Reason: itching) Qty: 20 0RF Follow-up/Referrals: UNKNOWN,DOCTOR [Primary Care Provider] - Stand Alone Forms: Work/School Release IP
[2025-02-10] MEDS: HYDROcodone/acetaminophen (*CRX) 5-325 MG TABLET 1 TAB PO (21:54)
== END 2025-02-10 22:35 | disposition home or self-care (01) ==
PROVIDERS: Emergency Provider Physician Assistant
DX: K02.9 Dental caries, unspecified (principal); E11.9 Type 2 diabetes mellitus without complications; Z79.4 Long term (current) use of insulin
CPT/HCPCS: 82948; 99283; A9270